=== PATIENT | female | born 1975 | race Caucasian/White ===

== ENCOUNTER → 2017-05-21 | Outpatient (CLI) | payer OTHER ==
--- NOTE | 2017-05-21 11:26 | US ---
EXAMINATION TYPE: US OB <= 14 wk fetus DATE OF EXAM: 05/21/2017 COMPARISON: NONE CLINICAL HISTORY: 41-year-old female O09.521 Elderly multigravida currently....... Evaluate dates EXAM PERFORMED: Transabdominal (TA) FINDINGS: Date of LMP: 03/24/2017, A3 Beta HcG (if available): Not available at this time EXAM MEASUREMENTS: GESTATIONAL AGE / DATING Dates by LMP: (8 weeks/2 days) EDC: 12/29/2017 Dates by Current Scan: (7 weeks/2 days) EDC: 01/05/2018 MATERNAL ANATOMY Uterus: 12.5 x 8.6 x 7.0 cm. Suggestion of a 2.2 cm fundal sided perigestational bleed. Right Ovary: 3.9 x 2.4 x 2.5 with a 2.3 cm cystic lesion with internal septation. Left Ovary: 4.8 x 2.3 x 1.8 cm with a probable functional cyst measuring 3.3 cm. Post CDS / Adnexa: no free fluid Presence of free fluid: no GESTATION / SURVEY CRL: 1.1 cm (7 weeks/2 days) MSD: seen, not measured Yolk Sac (normal less than 6mm): 2.9 Heart Rate: 153 bpm Rhythm: Normal IUP: Viable IUP SURFACING TECHNICIAN NOTES: Live single IUP measuring 7 weeks 2 days. IMPRESSION: 1. Single live anterior with estimated gestational age of 8 weeks 2 days by LMP. Current ul trasound biometry is 1 week smaller (7 weeks 2 days). 2. Suggestion of a small fundal sided perigestational bleed. 3. A lesion within each ovary, probable 3.3 cm corpus luteum on the left and nonspecific, mildly sept ated cyst measuring 2.3 cm in the right ovary. A 6-8 week follow-up can be considered to reassess. Th at exam could also assess for appropriate interval growth. 4. Otherwise, complete survey recommended at 18 - 20 weeks.
== END | disposition home or self-care (01) ==
LOC: RADUSWWP 08:53
PROVIDERS: ATTEND Obstetrics & Gynecology
DX: O09.521 Supervision of elderly multigravida, first trimester (principal); O34.81 Maternal care for other abnormalities of pelvic organs, first trimester; N83.202 Unspecified ovarian cyst, left side; N83.201 Unspecified ovarian cyst, right side; Z3A.01 Less than 8 weeks gestation of pregnancy
CPT/HCPCS: 76801

== ENCOUNTER 2017-06-09 08:06 | Emergency (ER) | payer OTHER ==
--- NOTE | 2017-06-09 08:29 | ED ---
Female Urogenital HPI - General Stated complaint: 10 weeks & poss misscarriage Time Seen by Provider: 06/09/17 08:16 Source: patient, RN notes reviewed Mode of arrival: ambulatory Limitations: no limitations - History of Present Illness Initial comments: 41-year-old female presents emergency Department chief complaint of spotting in . Patient is A4 currently 10 weeks . Patient states her [employer] is Dr. Ruiz. Patient states she started having some spotting this morning which was concerning. She does admit that she's having some lower abdominal cramping feels like menstrual cramps. Patient denies any dysuria or hematuria. Denies any nausea vomiting diarrhea constipation. No fevers or chills. Patient states she does not know what blood type she has though she has never received a RhoGAM shot. Patient denies any back pain denies any other associated symptoms. - Related Data Home Medications Medication Instructions Recorded Confirmed Metoclopramide [Reglan] 10 mg PO DAILY PRN 06/09/17 06/09/17 Pedi Multivit No.25/Folic Acid 300 mcg PO DAILY 06/09/17 06/09/17 [Flintstones Multivit Chew Tab] Previous Rx's Medication Instructions Recorded Cephalexin [Keflex] 500 mg PO Q8HR #21 cap 06/09/17 Allergies Allergy/AdvReac Type Severity Reaction Status Date / Time No Known Allergies Allergy Verified 06/09/17 09:22 Review of Systems ROS Statement: Those systems with pertinent positive or pertinent negative responses have been documented in the HPI. ROS Other: All systems not noted in ROS Statement are negative. Past Medical History Past Medical History: No Reported History Additional Past Medical History / Comment(s): Polycystic ovarian disease History of Any Multi-Drug Resistant Organisms: None Reported Additional Past Surgical History / Comment(s): D&C 3 Past Anesthesia/Blood Transfusion Reactions: No Reported Reaction Past Psychological History: Anxiety, Depression Smoking Status: Never smoker Past Alcohol Use History: None Reported Past Drug Use History: None Reported - Past Family History Mother Family Medical History: No Reported History General Exam Limitations: no limitations General appearance: alert, in no apparent distress Respiratory exam: Present: normal lung sounds bilaterally. Absent: respiratory distress, wheezes, rales, rhonchi, stridor Cardiovascular Exam: Present: regular rate, normal rhythm, normal heart sounds. Absent: systolic murmur, diastolic murmur, rubs, gallop, clicks GI/Abdominal exam: Present: soft, normal bowel sounds. Absent: distended, tenderness, guarding, rebound, rigid Back exam: Absent: CVA tenderness (R), CVA tenderness (L) Skin exam: Present: warm, dry, intact, normal color. Absent: rash Course Vital Signs 06/09/17 08:15 Temperature 97.7 F Pulse Rate 85 Respiratory 20 Rate Blood Pressure 133/87 O2 Sat by Pulse 97 Oximetry Medical Decision Making - Medical Decision Making 41-year-old female presented to department to complaint of spotting early . Patient has a viable IUP seen on ultrasound consistent with her prior. She does have evidence of subchorionic bleed. Patient does have asymptomatic bacteriuria patient be treated with antibiotics at this time. - Lab Data Result diagrams: 06/09/17 08:05 Lab Results 06/09/17 06/09/17 06/09/17 Range/Units 08:05 08:05 08:05 WBC 9.1 (3.8-10.6) k/uL RBC 4.48 (3.80-5.40) m/uL Hgb 12.9 (11.4-16.0) gm/dL Hct 35.7 (34.0-46.0) % MCV 79.7 L (80.0-100.0) fL MCH 28.7 (25.0-35.0) pg MCHC 36.0 (31.0-37.0) g/dL RDW 15.3 (11.5-15.5) % Plt Count 206 (150-450) k/uL Neutrophils % 67 % Lymphocytes % 23 % Monocytes % 4 % Eosinophils % 5 % Basophils % 1 % Neutrophils # 6.1 (1.3-7.7) k/uL Lymphocytes # 2.1 (1.0-4.8) k/uL Monocytes # 0.4 (0-1.0) k/uL Eosinophils # 0.4 (0-0.7) k/uL Basophils # 0.0 (0-0.2) k/uL HCG, Quant 86882.3 mIU/mL Urine Color Urine Appearance (Clear) Urine pH (5.0-8.0) Ur Specific [place] (1.001-1.035) Urine Protein (Negative) Urine Glucose (UA) (Negative) Urine Ketones (Negative) Urine Blood (Negative) Urine Nitrite (Negative) Urine Bilirubin (Negative) Urine Urobilinogen (<2.0) mg/dL Ur Leukocyte Esterase (Negative) Urine WBC (0-5) /hpf Ur Squamous Epith Cells (0-4) /hpf Urine Bacteria (None) /hpf Blood Type AB Positive Blood Type Recheck No 06/09/17 Range/Units 08:05 WBC (3.8-10.6) k/uL RBC (3.80-5.40) m/uL Hgb (11.4-16.0) gm/dL Hct (34.0-46.0) % MCV (80.0-100.0) fL MCH (25.0-35.0) pg MCHC (31.0-37.0) g/dL RDW (11.5-15.5) % Plt Count (150-450) k/uL Neutrophils % % Lymphocytes % % Monocytes % % Eosinophils % % Basophils % % Neutrophils # (1.3-7.7) k/uL Lymphocytes # (1.0-4.8) k/uL Monocytes # (0-1.0) k/uL Eosinophils # (0-0.7) k/uL Basophils # (0-0.2) k/uL HCG, Quant mIU/mL Urine Color Yellow Urine Appearance Cloudy H (Clear) Urine pH 7.5 (5.0-8.0) Ur Specific [place] 1.011 (1.001-1.035) Urine Protein Negative (Negative) Urine Glucose (UA) Negative (Negative) Urine Ketones Negative (Negative) Urine Blood Negative (Negative) Urine Nitrite Negative (Negative) Urine Bilirubin Negative (Negative) Urine Urobilinogen <2.0 (<2.0) mg/dL Ur Leukocyte Esterase Negative (Negative) Urine WBC 2 (0-5) /hpf Ur Squamous Epith Cells 8 H (0-4) /hpf Urine Bacteria Moderate H (None) /hpf Blood Type Blood Type Recheck Disposition Clinical Impression: Threatened miscarriage in early , Asymptomatic bacteriuria during Disposition: HOME SELF-CARE Condition: Stable Instructions: Urinary Tract Infection in (ED) Additional Instructions: Please return to the Emergency Department if symptoms worsen or any other concerns. Prescriptions: Cephalexin [Keflex] 500 mg PO Q8HR #21 cap Referrals: McPhilimy,Alberto, DO [Primary Care Provider] - 1-2 days Time of Disposition: 09:53
[2017-06-09 08:38] LABS: Basophils % (A) 1 %; Eosinophils # (A) 0.4 k/uL (0-0.7); Eosinophils % (A) 5 %; HCT 35.7 % (34.0-46.0); HGB 12.9 gm/dL (11.4-16.0); Lymphocytes # (A) 2.1 k/uL (1.0-4.8); Lymphocytes % (A) 23 %; MCH 28.7 pg (25.0-35.0); MCV 79.7 fL (80.0-100.0); Mean Platelet Volume 7.8; Monocytes # (A) 0.4 k/uL (0-1.0); Monocytes % (A) 4 %; Neutrophils # (A) 6.1 k/uL (1.3-7.7); Neutrophils % (A) 67 %; Platelet Count 206 k/uL (150-450); RBC 4.48 m/uL (3.80-5.40); RDW 15.3 % (11.5-15.5); WBC 9.1 k/uL (3.8-10.6)
[2017-06-09 09:03] LABS: Appearance,Urine Cloudy (Clear); Bacteria,Urine Moderate /hpf; Bilirubin,Urine Negative (Negative); Blood,Urine Negative (Negative); Color,Urine Yellow; Glucose,Urine (UA) Negative (Negative); Ketones,Urine Negative (Negative); Leukocyte Esterase,Urine Negative (Negative); Nitrite,Urine Negative (Negative); PH, Urine 7.5 (5.0-8.0); Protein,Urine Negative (Negative); Specific Gravity,Urine 1.011 (1.001-1.035); Squamous Epithelial Cell,Urine 8 /hpf (0-4); Urobilinogen,Urine <2.0 mg/dL (<2.0); WBC,Urine 2 /hpf (0-5)
--- NOTE | 2017-06-09 09:42 | US ---
EXAMINATION TYPE: US OB <= 14 wk fetus DATE OF EXAM: 06/09/2017 COMPARISON: NONE CLINICAL HISTORY: brown discharge with menstrual like cramping. Pt has history of 4 miscarriages and PCOS. Previous D&C;s.. EXAM PERFORMED: Transabdominal (TA) EXAM MEASUREMENTS: GESTATIONAL AGE / DATING Physician Established: (10 weeks/0 days) EDC: 01/05/18 Dates by LMP: (11 weeks/0 days) EDC: 12/29/17 Dates by First Scan: (10 weeks/0 days) EDC: 01/05/18 Dates by Current Scan for: (10 weeks/1 days) EDC: 01/04/18 MATERNAL ANATOMY Uterus: 15.1 x 7.6 x 10.0 cm ; appears wnl Right Ovary: 4.5 x 3.1 x 2.4 cm; cystic area noted measuring 1.6 x 1.9 x 1.9 cm Left Ovary: 5.2 x 3.2 x 3.2 cm; cystic area noted measuring 2.9 x 3.1 x 2.7 cm Post CDS / Adnexa: no Presence of free fluid: no Presence of corpus luteal cyst: not seen Presence of subchorionic bleed: ?superior to gest sac complex hypoechoic area measuring 2.9 x 1.6 x 3 .3 cm GESTATION / SURVEY CRL: 3.3 cm (10 weeks/1 days) Yolk Sac (normal less than 6mm): 4 mm Heart Rate: 172 bpm Rhythm: Normal IUP: Viable IUP Date of LMP: unknown Beta HcG (if available): N/A yet IMPRESSION: BILATERAL INTRAUTERINE GESTATION WITH A GESTATIONAL AGE OF 10 WEEKS 1 DAY +/- 7 DAYS. ESTIMATED DATE OF CONFINEMENT BASED ON THIS EXAMINATION IS 01/04/2018. PLEASE NOTE THE PRESENCE OF A SMALL SUBCHORIONIC BLEED.
[2017-06-09 10:06] VITALS: BP 126/72; PULSE 80; RESP 18; TEMP 97.6
== END 2017-06-09 10:05 | disposition home or self-care (01) ==
LOC: EC 08:06
DX: O20.0 Threatened abortion (principal); O99.89 Other specified diseases and conditions complicating pregnancy, childbirth and the puerperium; R82.71 Bacteriuria; Z3A.10 10 weeks gestation of pregnancy; Z79.899 Other long term (current) drug therapy
CPT/HCPCS: 36415; 76801; 81001; 84702; 85025; 86900; 86901; 87086; 99284

== ENCOUNTER → 2017-11-07 | Outpatient (CLI) | payer OTHER ==
--- NOTE | 2017-11-07 13:08 | US ---
EXAMINATION TYPE: US OB >= 14 wk fetus DATE OF EXAM: 11/07/2017 COMPARISON: None CLINICAL HISTORY: O09.523 Supervision of elderly multigravida third; growth; TECHNIQUE: Transabdominal (TA) GESTATIONAL AGE / DATING Physician Established: (31 weeks/4 days) EDC: 01/05/2018 Dates by LMP: (32 weeks/4 days) EDC: 12/29/2017 Dates by First Scan: (31 weeks/4 days) EDC: 01/05/2018 Dates by Current Scan: (33 weeks/3 days) EDC: 12/23/2017 Beta HCG (if available): NA SURVEY IUP: Single PLACENTA: Posterior PREVIA: No Previa FLIP: 15.2 cm Normal CERVICAL LENGTH (transabdominal: norm > 3.0cm): 3.4 cm on recheck length BIOMETRY PRESENTATION: Vertex LIE: Longitudinal BPD: 8.2 cm 33 weeks / 1 day HC: 30.8 cm 34 weeks / 2 days AC: 29.5 cm 33 weeks / 3 days FL: 6.5 cm 33 weeks / 5 days ESTIMATED WEIGHT IN GRAMS: 2226.0 grams ESTIMATED WEIGHT IN LBS/OZ: 4 lbs. 15 oz. WEIGHT PERCENTAGE BASED ON ESTABLISHED DATES: 93.6% HC/AC: 1.04 Normal FL/AC: 22.14 Normal HEART RATE: 134 bpm RHYTHM: Normal Single, live IUP, 33 weeks/3 days, EDC: 12/23/2017, HR 134bpm. IMPRESSION: 1. Single intrauterine gestation estimated at 33 weeks 3 days gestation. This would've a calculated T 10 11/04/2017. 2. Cardiac activity measures 134 bpm. 3. Estimated weight is [address] the fetus 94th percentile. 4. Cervical length appears normal on the current exam
== END | disposition home or self-care (01) ==
LOC: RADUSWWP 11:06
PROVIDERS: ATTEND Obstetrics & Gynecology
DX: O09.523 Supervision of elderly multigravida, third trimester (principal); Z3A.33 33 weeks gestation of pregnancy
CPT/HCPCS: 76805

== ENCOUNTER 2017-12-09 22:15 | Outpatient (CLI) | payer OTHER ==
[2017-12-09 23:48] VITALS: PULSE 65; RESP 16; TEMP 98.2
[2017-12-10 00:05] LABS: ALT 13 U/L (9-52); AST 14 U/L (14-36); Blood Urea Nitrogen 3 mg/dL (7-17); LDH 342 U/L (313-618); Uric Acid 4.5 mg/dL (3.7-7.4)
[2017-12-10 00:06] LABS: Appearance,Urine Clear (Clear); Bilirubin,Urine Negative (Negative); Blood,Urine Negative (Negative); Color,Urine Light Yellow; Glucose,Urine (UA) Negative (Negative); Ketones,Urine Negative (Negative); Leukocyte Esterase,Urine Negative (Negative); Nitrite,Urine Negative (Negative); PH, Urine 7.5 (5.0-8.0); Protein,Urine Negative (Negative); Specific Gravity,Urine 1.006 (1.001-1.035); Urobilinogen,Urine <2.0 mg/dL (<2.0)
[2017-12-10 00:30] VITALS: BP 124/68
--- NOTE | 2017-12-18 00:07 | P.MSEPDOC ---
Presenting Problems - Arrival Data Date of Arrival on Unit: 12/09/17 Time of Arrival on Unit: 22:15 Mode of Transport: Wheelchair - Complaint OB-Reason for Admission/Chief Complaint: Acute Nausea/Vomiting, Headache Comment: FARRELL and nausea all day Medical History - Information : 8 Para: 4 Term: 4 : 0 Abortions: Spontaneous or Elective: 3 Number of Living Children: 4 - Gestational Age Gestational Age by ABUNDIO (wks/days): 36 Weeks and 1 Days - History Comment: DOM- care with Dr Ruiz Review of Systems - Review of Systems Constitutional: No problems Breast: No problems ENT: No problems Cardiovascular: No problems Respiratory: No problems Gastrointestinal: No problems Genitourinary: No problems Musculoskeletal: No problems Neurological: No problems Skin: No problems Vital Signs - Temperature Temperature: 98.2 F Temperature Source: Oral - Pulse Right Pulse Rate: 65 Pulse Assessment Method: Pulse Oximetry - Respirations Respiratory Rate: 16 O2 Sat by Pulse Oximetry: 98 - Blood Pressure Right Arm Blood Pressure: 124/68 Blood Pressure Mean: 86 Blood Pressure Source: Automatic Cuff Medical Screen Scoring (Pre) - Cervical Exam Dilation: Exam Deferred Effacement: Exam Deferred - Uterine Contractions Frequency: N/A Duration: N/A Intensity: N/A - Maternal Vital Signs Maternal Blood Pressure: Systolic >139 = 2 Signs of Preeclampsia: Headache = 1, Nausea/Vomiting = 1 Maternal Respirations: N/A - Pain Assessment Pain Location and Character: Head Pain Scale Used: Numeric (1 - 10) Pain Intensity: 3 Pain Management Goal: 3 Pain Description: *Acute, Aching, Sore Pain Duration: 12 Pain Duration Units: Hours Pain Behavior: Vocalization Pain Aggravating Factors: None Pharmacological Interventions: PRN Medication Non-Pharmacological Interventions: Darkened Room, Position/Reposition - Assessment Baseline FHR: 120 Heart Rate - NICHD Category: Category I (Normal) = 0 NST: Reactive - Total Score Total Score (Pre): 4 - Level of Risk Level of Risk: Low (0-5) Physician Notification (Pre) - Physician Notified Physician Notified Date: 12/09/17 Physician Notified Time: 23:08 Physician/Practitioner Notifed:: Dr Webber - Notification Comment Comment: Reported on pts c/o FARRELL and nausea today. Reported on vitals while here , fhts, no cntrx, DOM with scheduled appt tomorrw in office with Dr Ruiz. Reported on no hx per pt, BP has come down since admission to . Orders to obtain PIH labs, call with results. Medical Screen Scoring (Post) - Cervical Exam Dilation: Exam Deferred - Uterine Contractions Frequency: N/A Duration: N/A Intensity: N/A - Maternal Vital Signs Maternal Temperature: N/A Signs of Preeclampsia: N/A Maternal Respirations: N/A - Pain Assessment Pain Intensity: 0 Pain Management Goal: 3 - Assessment Heart Rate: 110 Heart Rate - NICHD Category: Category I (Normal) = 0 NST: Reactive Position: N/A - Total Score Total Score (Post): 0 - Post Treatment Level of Risk Post Treatment Level of Risk: Low (0-5) Physician Notification (Post) - Physician Notified Physician Notified Date: 12/10/17 Physician Notified Time: 00:11 Physician/Practitioner Notified:: Dr Webber - Notification Comment Comment: reported on fhts reactive, lower baseline than initially, no cntrx, vitals WNL, reported on lab results, pt states her FARRELL and nausea are gone. orders to d/c home, keep scheduled appt in am. return with worsening sx Disposition - Disposition OB Disposition: Discharge to home Discharge Date: 12/10/17 Discharge Time: 00:11 I agree with the RN Medical Screening Exam: Yes Risk & Benefit of care provided described in d/c instruction: Yes Diagnosis: HEADACHE
== END 2017-12-10 00:15 | disposition home or self-care (01) ==
LOC: FBPOP 22:15
PROVIDERS: ATTEND Obstetrics & Gynecology
DX: O26.893 Other specified pregnancy related conditions, third trimester (principal); R51 Headache; R11.0 Nausea
CPT/HCPCS: 59025; 81003; 82565; 83615; 84450; 84460; 84520; 84550; 99215

== ENCOUNTER → 2017-12-11 | Outpatient (CLI) | payer OTHER ==
--- NOTE | 2017-12-16 07:28 | US ---
EXAMINATION TYPE: US OB >= 14 wk fetus DATE OF EXAM: 12/11/2017 COMPARISON: None CLINICAL HISTORY: O90.523 SUPERVISION OF ELDERLY MULTIGRAVIDA Supervision of normal TECHNIQUE: Transabdominal (TA) GESTATIONAL AGE / DATING Physician Established: (36 weeks/3 days) EDC: 01/05/18 Dates by LMP: (37 weeks/3 days) EDC: 12/29/17 Dates by First Scan: (36 weeks/3 days) EDC: 01/05/18 Dates by Current Scan: (38 weeks/0 days) EDC: 12/25/17 SURVEY IUP: Single PLACENTA: Fundal/posterior PREVIA: No Previa FLIP: 11.0 cm Normal CERVICAL LENGTH (transabdominal: norm > 3.0cm): 3.6 cm BIOMETRY PRESENTATION: Vertex LIE: Longitudinal BPD: 9.3 cm 38 weeks / 0 days HC: 34.5 cm 39 weeks / 6 days AC: 35.4 cm 39 weeks / 2 days FL: 7.3 cm 37 weeks / 1 days ESTIMATED WEIGHT IN GRAMS: 3584 grams ESTIMATED WEIGHT IN LBS/OZ: 7 lbs. 14 oz. WEIGHT PERCENTAGE BASED ON ESTABLISHED DATES: 96.7% HC/AC: 0.97 Normal FL/AC: 20.45 Normal HEART RATE: 136 bpm RHYTHM: Normal IMPRESSION: Single viable IUP 38wks/0days with ABUNDIO of 12/25/17
== END | disposition home or self-care (01) ==
LOC: RADUSWWP 14:04
PROVIDERS: ATTEND Obstetrics & Gynecology
DX: O09.523 Supervision of elderly multigravida, third trimester (principal); Z3A.38 38 weeks gestation of pregnancy
CPT/HCPCS: 76805

== ENCOUNTER 2017-12-20 21:35 | Inpatient (IN) | payer OTHER ==
[~2017-12-20 21:35] MED LIST: ROPIVACAINE 5MG/ML 20ML VIAL ONE; SODIUM CHLORIDE 0.9% 100 ML BAG ONE; fentaNYL (PF) 50 MCG/ML 5 ML AMP ONE
[2017-12-20] MEDS: LACTATED RINGERS 1,000 ML IV SCH (23:00)
[2017-12-20] MEDS ORDERED: METHYLERGONOVINE 0.2 MG/ML 1 ML AMP IM PRN (23:01)
[2017-12-20] MEDS ORDERED: OXYTOCIN 10 UNIT/ML 1 ML VIAL IM PRN (23:01)
[2017-12-20] MEDS ORDERED: CARBOPROST TROMETHAMINE 250 MCG/ML 1 ML AMP IM PRN (23:01)
[2017-12-20] MEDS ORDERED: TERBUTALINE 1 MG/ML VIAL SQ PRN (23:01)
[2017-12-20] MEDS ORDERED: LIDOCAINE 0.5% (PF) 5 MG/ML (50 ML SDV) SQ PRN (23:01)
[2017-12-20] MEDS ORDERED: OXYTOCIN 20 UNITS/1000 ML NS 1,000 ML IV SCH (23:15)
[2017-12-20 23:26] LABS: Basophils % (A) 0 %; Eosinophils # (A) 0.3 k/uL (0-0.7); Eosinophils % (A) 3 %; HCT 36.8 % (34.0-46.0); HGB 12.8 gm/dL (11.4-16.0); Lymphocytes # (A) 2.6 k/uL (1.0-4.8); Lymphocytes % (A) 27 %; MCH 30.1 pg (25.0-35.0); MCHC 34.8 g/dL (31.0-37.0); MCV 86.5 fL (80.0-100.0); Mean Platelet Volume 8.9; Monocytes # (A) 0.7 k/uL (0-1.0); Monocytes % (A) 7 %; Neutrophils # (A) 5.8 k/uL (1.3-7.7); Neutrophils % (A) 61 %; Platelet Count 182 k/uL (150-450); RBC 4.26 m/uL (3.80-5.40); RDW 14.9 % (11.5-15.5); WBC 9.5 k/uL (3.8-10.6)
[2017-12-20 23:31] VITALS: BMI 34.6
[2017-12-21] MEDS: LACTATED RINGERS 1,000 ML IV SCH (01:02)
--- NOTE | 2017-12-21 03:35 | P.HPOB ---
History of Present Illness H&P Date: 12/21/17 Chief Complaint: Gestational hypertension 42-year-old presented at 37 weeks and 6 days to triage complaining of leaking fluid. Amniosure was negative. However, she had a few elevated blood pressures of 141/85, and 150/80. This is the second time she is coming in with elevated blood pressures. She came in last week at 36 weeks and 1 day with blood pressures up to 160/90 and had to have preeclamptic workup, which was negative. This is enough to diagnose her with gestational hypertension. Since she is over 37 weeks now, by ACOG guidelines she should be delivered. Her cervix is 3 cm dilated, 70% effaced, and -2 station. She is not elpidio. heart tones are 130-135 with moderate variability and reactive. Informed consent was obtained and the patient will be admitted for induction of labor. Review of Systems All systems: negative Constitutional: Denies chills, Denies fever Eyes: denies blurred vision, denies pain Ears, nose, mouth and throat: Denies headache, Denies sore throat Cardiovascular: Denies chest pain, Denies shortness of breath Respiratory: Denies cough Gastrointestinal: Denies abdominal pain, Denies diarrhea, Denies nausea, Denies vomiting Genitourinary: Denies dysuria, Denies hematuria Musculoskeletal: Denies myalgias Integumentary: Denies pruritus, Denies rash Neurological: Denies numbness, Denies weakness Psychiatric: Denies anxiety, Denies depression Endocrine: Denies fatigue, Denies weight change Past Medical History Past Medical History: No Reported History Additional Past Medical History / Comment(s): Polycystic ovarian disease. Obstetric history: Patient has had 4 previous vaginal deliveries. This is her ninth . She's had care with Dr. Ruiz at [facility] as the first trimester. Blood type is AB+, antibodies negative, rubella immune, RPR nonreactive, hepatitis B negative, HIV nonreactive, GBS negative. She did have an MFM consult for advanced maternal age. NSTs were reactive. History of Any Multi-Drug Resistant Organisms: None Reported Additional Past Surgical History / Comment(s): D&C 3 Past Anesthesia/Blood Transfusion Reactions: No Reported Reaction Past Psychological History: Anxiety, Depression Smoking Status: Never smoker Past Alcohol Use History: None Reported Past Drug Use History: None Reported - Past Family History Mother Family Medical History: No Reported History Medications and Allergies Home Medications Medication Instructions Recorded Confirmed Type Pedi Multivit No.25/Folic Acid 300 mcg PO DAILY 06/09/17 12/20/17 History [Flintstones Multivit Chew Tab] Allergies Allergy/AdvReac Type Severity Reaction Status Date / Time No Known Allergies Allergy Verified 12/20/17 21:53 Exam Osteopathic Statement: *. No significant issues noted on an osteopathic structural exam other than those noted in the History and Physical/Consult. Vital Signs Temp Pulse Resp BP Pulse Ox 12/20/17 22:57 97.5 F L 75 16 137/72 97 Intake and Output 12/20/17 12/20/17 12/21/17 14:59 22:59 06:59 Other: Weight 100.244 kg Heart: Regular rate and rhythm Lungs: Clear to auscultation bilaterally Abdomen: Soft, nontender Extremities: Negative Homans sign Results Result Diagrams: 12/20/17 23:00 Assessment and Plan (1) Gestational hypertension Current Visit: Yes Status: Acute Code(s): O13.9 - GESTATIONAL HTN W/O SIGNIFICANT PROTEINURIA, UNSP TRIMESTER SNOMED Code(s): 784216797 Plan: 1. Admit to family place 2. Induction of labor with amniotomy and Pitocin 3. Anticipate normal vaginal delivery
--- NOTE | 2017-12-21 03:37 | P.PROBDLV ---
Vaginal Delivery Note - . Vaginal Delivery Note: 42-year-old presents at 37 weeks and 6 days for induction of labor due to gestational hypertension. Her cervix is 3 cm dilated, 70% effaced, and -2 station. She is elpidio irregularly. heart tones are 130-135 with moderate variability and reactive. Pitocin was started. Amniotomy was performed at 00 25 and clear fluid noted. When she was uncomfortable she did get an epidural worked very well. One her cervix was completely dilated, she pushed and delivered a viable female infant over intact perineum under epidural anesthesia at 3:10 AM. Head delivered OA, anterior shoulder delivered gentle downward guidance followed by posterior shoulder and rest of body. Nose and mouth bulb scissors, cord clamped and cut, placed on mother's abdomen. Apgars 9, 9, weight 7 lbs. 15 oz. Placenta delivered spontaneously, intact with three-vessel cord at 3:12 AM. Vagina, cervix, and perineum were inspected. First-degree midline laceration was repaired with 3-0 Vicryl. Estimated blood loss 150 mL. Mother and baby in stable condition.
[2017-12-21] MEDS ORDERED: BENZOCAINE/MENTHOL SPRAY 1 GM/SPRAY AEROSOL TOPICAL PRN (03:38)
[2017-12-21] MEDS ORDERED: SIMETHICONE 80 MG CHEWABLE PO PRN (03:38)
[2017-12-21] MEDS ORDERED: HYDROCORTISONE 2.5% RECTAL CREAM 30 GM TUBE RECTAL PRN (03:38)
[2017-12-21] MEDS ORDERED: diphenhydrAMINE 50 MG CAP PO PRN (03:38)
[2017-12-21] MEDS ORDERED: ZOLPIDEM 5 MG TAB PO PRN (03:38)
[2017-12-21] MEDS ORDERED: LANOLIN CREAM 5 GM TUBE TOPICAL PRN (03:38)
[2017-12-21] MEDS ORDERED: WITCH HAZEL 1 EACH MED..PAD TOPICAL PRN (03:38)
[2017-12-21] MEDS ORDERED: diphenhydrAMINE 50 MG/ML 1 ML VIAL IVP PRN ×2 (03:38)
[2017-12-21] MEDS ORDERED: diphenhydrAMINE 25 MG CAP PO PRN (03:38)
[2017-12-21] MEDS ORDERED: OXYTOCIN 20 UNITS/1000 ML NS 1,000 ML IV SCH (03:45)
[2017-12-21] MEDS: ACETAMINOPHEN TAB 325 MG TAB PO PRN ×3 (04:15→23:45)
[2017-12-21] MEDS: SENNOSIDES-DOCUSATE SODIUM 1 EACH TAB PO SCH ×2 (08:00→19:31)
[2017-12-21] MEDS: IBUPROFEN 600 MG TAB PO PRN ×2 (09:06→19:30)
[2017-12-21 23:51] VITALS: TEMP 98.5
[2017-12-22] MEDS: IBUPROFEN 600 MG TAB PO PRN (04:15)
[2017-12-22] MEDS: ACETAMINOPHEN TAB 325 MG TAB PO PRN (08:52)
[2017-12-22] MEDS: SENNOSIDES-DOCUSATE SODIUM 1 EACH TAB PO SCH (09:01)
[2017-12-22 09:49] VITALS: BP 129/78; PULSE 70; RESP 18
--- NOTE | 2017-12-22 09:54 | P.DS ---
Providers Date of admission: 12/20/17 22:48 Expected date of discharge: 12/22/17 Attending physician: Debi Daniels Primary care physician: Stated None - Discharge Diagnosis(es) (1) Gestational hypertension Current Visit: Yes Status: Acute (2) Normal vaginal delivery Current Visit: Yes Status: Acute Hospital Course: Pt presented with some high BPs at 37 weeks gestation. She underwent induction of labor and a normal vaginal delivery. Her pp course was uncomplicated. She will be discharged home PPD #1 in stable condition to follow up with me in 6 weeks. Plan - Discharge Summary New Discharge Prescriptions: New Ibuprofen [Motrin] 600 mg PO Q6HR PRN #30 tab PRN Reason: Mild Pain Or Fever >= 100.5 No Action Pedi Multivit No.25/Folic Acid [Flintstones Multivit Chew Tab] 300 mcg PO DAILY Discharge Medication List Pedi Multivit No.25/Folic Acid [Flintstones Multivit Chew Tab] 300 mcg PO DAILY 06/09/17 [History] Ibuprofen [Motrin] 600 mg PO Q6HR PRN #30 tab 12/22/17 [Rx] Follow up Appointment(s)/Referral(s): Debi Daniels DO [Doctor of Osteopathic Medicine] - 6 Weeks Discharge Disposition: HOME SELF-CARE
--- NOTE | 2017-12-23 07:54 | P.MSEPDOC ---
Presenting Problems - Arrival Data Date of Arrival on Unit: 12/21/17 Time of Arrival on Unit: 22:41 Mode of Transport: Ambulatory Medical History - Information : 9 Para: 4 Term: 4 : 0 Abortions: Spontaneous or Elective: 4 Number of Living Children: 4 - Gestational Age Gestational Age by ABUNDIO (wks/days): 37 Weeks and 6 Days Vital Signs - Temperature Temperature: 98.5 F Temperature Source: Oral - Pulse Right Brachial Pulse Rate: 70 Pulse Assessment Method: Automatic Cuff - Respirations Respiratory Rate: 18 Oxygen Delivery Method: Room Air - Blood Pressure Right Arm Blood Pressure: 129/78 Blood Pressure Mean: 95 Blood Pressure Source: Automatic Cuff Physician Notification (Pre) - Notification Comment Comment: Dr. Daniels at bedside Disposition - Disposition Discharge Date: 12/22/17 Discharge Time: 10:59 I agree with the RN Medical Screening Exam: Yes Risk & Benefit of care provided described in d/c instruction: Yes Diagnosis: GESTATIONAL HTN W/O SIGNIFICANT PROTEINURIA, THIRD TRIMESTER
== END 2017-12-22 11:02 | disposition home or self-care (01) | DRG 807 ==
LOC: FBPOP 21:35 → 4FBP 22:48
PROVIDERS: ADMIT Obstetrics & Gynecology; ATTEND Obstetrics & Gynecology
PROC: 0HQ9XZZ Repair Perineum Skin, External Approach (ICD-10-PCS; principal; 2017-12-20)
PROC: 00HU33Z Insertion of Infusion Device into Spinal Canal, Percutaneous Approach (ICD-10-PCS; principal; 2017-12-20)
PROC: 10907ZC Drainage of Amniotic Fluid, Therapeutic from Products of Conception, Via Natural or Artificial Opening (ICD-10-PCS; principal; 2017-12-20)
PROC: 3E033VJ Introduction of Other Hormone into Peripheral Vein, Percutaneous Approach (ICD-10-PCS; principal; 2017-12-20)
PROC: 3E0R3NZ Introduction of Analgesics, Hypnotics, Sedatives into Spinal Canal, Percutaneous Approach (ICD-10-PCS; principal; 2017-12-20)
PROC: 10E0XZZ Delivery of Products of Conception, External Approach (ICD-10-PCS; principal; 2017-12-20)
DX: O13.4 Gestational [pregnancy-induced] hypertension without significant proteinuria, complicating childbirth (principal); Z37.0 Single live birth; E28.2 Polycystic ovarian syndrome; F32.9 Major depressive disorder, single episode, unspecified; F41.9 Anxiety disorder, unspecified; O70.0 First degree perineal laceration during delivery; Z3A.37 37 weeks gestation of pregnancy
CPT/HCPCS: 59025; 85025; 86850; 86900; 86901; 99213

== ENCOUNTER 2017-12-27 19:23 | Inpatient (IN) | payer OTHER ==
[2017-12-27] MEDS ORDERED: KETOROLAC 30 MG/ML 1 ML VIAL IVP STA (19:44)
[2017-12-27] MEDS ORDERED: SODIUM CHLORIDE 0.9% 1,000 ML IV ONE (19:44)
[2017-12-27] MEDS ORDERED: LABETALOL 5 MG/ML VIAL MDV IVP STA ×2 (19:44→20:42)
[2017-12-27 20:05] LABS: Basophils # (A) 0.1 k/uL (0-0.2); Basophils % (A) 1 %; Eosinophils # (A) 0.5 k/uL (0-0.7); Eosinophils % (A) 6 %; HCT 39.4 % (34.0-46.0); Lymphocytes # (A) 2.3 k/uL (1.0-4.8); Lymphocytes % (A) 26 %; MCH 29.6 pg (25.0-35.0); MCV 89.5 fL (80.0-100.0); Mean Platelet Volume 7.6; Monocytes # (A) 0.4 k/uL (0-1.0); Monocytes % (A) 5 %; Neutrophils # (A) 5.3 k/uL (1.3-7.7); Neutrophils % (A) 62 %; Platelet Count 227 k/uL (150-450); RDW 14.6 % (11.5-15.5); WBC 8.6 k/uL (3.8-10.6)
[2017-12-27 20:15] LABS: ALT 23 U/L (9-52); AST 28 U/L (14-36); Albumin 3.4 g/dL (3.5-5.0); Alkaline Phosphatase 84 U/L (38-126); Anion Gap 9 mmol/L; Blood Urea Nitrogen 11 mg/dL (7-17); Calcium 8.6 mg/dL (8.4-10.2); Carbon Dioxide 23 mmol/L (22-30); Chloride 108 mmol/L (98-107); Glucose 88 mg/dL (74-99); LDH 645 U/L (313-618); Potassium 3.9 mmol/L (3.5-5.1); Sodium 140 mmol/L (137-145); Total Bilirubin 0.2 mg/dL (0.2-1.3); Total Protein 6.5 g/dL (6.3-8.2); Uric Acid 6.5 mg/dL (3.7-7.4)
[2017-12-27 20:23] LABS: Appearance,Urine Clear (Clear); Bilirubin,Urine Negative (Negative); Blood,Urine Moderate (Negative); Color,Urine Colorless; Glucose,Urine (UA) Negative (Negative); Ketones,Urine Negative (Negative); Leukocyte Esterase,Urine Trace (Negative); Mucus,Urine Rare /hpf; Nitrite,Urine Negative (Negative); PH, Urine 6.5 (5.0-8.0); Protein,Urine Negative (Negative); RBC,Urine 1 /hpf (0-5); Specific Gravity,Urine 1.004 (1.001-1.035); Squamous Epithelial Cell,Urine 1 /hpf (0-4); Urobilinogen,Urine <2.0 mg/dL (<2.0); WBC,Urine 1 /hpf (0-5)
[2017-12-27] MEDS ORDERED: hydrALAZINE HCL 20 MG/ML 1 ML VIAL IVP STA (20:45)
[2017-12-27] MEDS ORDERED: MAGNESIUM SULFATE GM 6 GM in SODIUM CHLORIDE 0.9% 50 ML IVPB ONE (21:05)
--- NOTE | 2017-12-27 21:25 | ED ---
Recheck HPI <MaxethelJairon Wendy - Last Filed: 12/27/17 21:58> - General Source: patient Mode of arrival: ambulatory Limitations: no limitations <Inna Fitzgerald - Last Filed: 12/28/17 03:06> - General Chief Complaint: Recheck/Abnormal Lab/Rx Stated Complaint: hypertension/headache Time Seen by Provider: 12/27/17 19:36 - History of Present Illness Initial Comments: 42-year-old female patient who is 6 days presents to the emergency department today for evaluation of headache and elevated blood pressure. Patient states that she had an induced vaginal delivery at 37 weeks 6 days for signs of preeclampsia. Patient states that for the last 4 days she has had headaches. Patient states that the headache is generalized with increased intensity at the base of her skull and into her neck. Patient denies any significant swelling to her extremities. She denies any blurred vision, double vision, chest pain, shortness of breath, abdominal pain, nausea, or vomiting. She denies any numbness or tingling to her extremities. Denies any unilateral weakness. Denies any dizziness. If that she is having mild vaginal bleeding. Patient is currently breast-feeding. Not taking anything for blood pressure at this time. Patient denies any recent rash, fever, chills, shortness breath, diarrhea, constipation, back pain, hematuria, dysuria, urinary urgency, urinary frequency, or any other complaints. (Inna Fitzgerald) - Related Data Home Medications Medication Instructions Recorded Confirmed Wvr-Prnr-[id number] Acid 1 cap PO DAILY 12/27/17 12/27/17 [-U Capsule (formulary)] Allergies Allergy/AdvReac Type Severity Reaction Status Date / Time No Known Allergies Allergy Verified 12/27/17 19:53 Review of Systems ROS Other: All systems not noted in ROS Statement are negative. <Jairon Aldridge - Last Filed: 12/27/17 21:58> ROS Other: All systems not noted in ROS Statement are negative. <Inna Fitzgerald - Last Filed: 12/28/17 03:06> ROS Statement: Those systems with pertinent positive or pertinent negative responses have been documented in the HPI. Past Medical History Past Medical History: No Reported History Additional Past Medical History / Comment(s): Polycystic ovarian disease. Obstetric history: Patient has had 4 previous vaginal deliveries. This is her ninth . She's had care with Dr. Ruiz at [facility] as the first trimester. Blood type is AB+, antibodies negative, rubella immune, RPR nonreactive, hepatitis B negative, HIV nonreactive, GBS negative. She did have an MFM consult for advanced maternal age. NSTs were reactive. History of Any Multi-Drug Resistant Organisms: None Reported Additional Past Surgical History / Comment(s): D&C 3 Past Anesthesia/Blood Transfusion Reactions: No Reported Reaction Past Psychological History: Anxiety, Depression Smoking Status: Never smoker Past Alcohol Use History: None Reported Past Drug Use History: None Reported - Past Family History Mother Family Medical History: No Reported History <Inna Fitzgerald - Last Filed: 12/28/17 03:06> General Exam Limitations: no limitations General appearance: alert, in no apparent distress, other (This is a well- developed, well-nourished adult female patient in no acute distress. Vital signs upon presentation are temperature 97.8F, pulse 66, respirations 16, blood pressure 161/98, pulse ox 98% on room air.) Eye exam: Present: normal appearance, PERRL, EOMI. Absent: scleral icterus, conjunctival injection, periorbital swelling ENT exam: Present: normal exam, normal oropharynx, mucous membranes moist Respiratory exam: Present: normal lung sounds bilaterally. Absent: respiratory distress, wheezes, rales, rhonchi, stridor Cardiovascular Exam: Present: regular rate, normal rhythm, normal heart sounds. Absent: systolic murmur, diastolic murmur, rubs, gallop, clicks GI/Abdominal exam: Present: soft, normal bowel sounds. Absent: distended, tenderness, guarding, rebound, rigid Extremities exam: Present: normal inspection, full ROM, normal capillary refill , other (Trace pedal edema). Absent: tenderness, pedal edema, joint swelling, calf tenderness Neurological exam: Present: alert, oriented X3, CN II-XII intact Psychiatric exam: Present: normal affect, normal mood Skin exam: Present: warm, dry, intact, normal color. Absent: rash <Inna Fitzgerald - Last Filed: 12/28/17 03:06> Vital Signs 12/27/17 12/27/17 12/27/17 19:31 20:10 20:41 Temperature 97.8 F Pulse Rate 66 55 L 56 L Pulse Rate [ Left] Respiratory 16 16 16 Rate Blood Pressure 161/98 186/98 190/83 Blood Pressure [Left Arm] O2 Sat by Pulse 98 97 96 Oximetry 12/27/17 12/27/17 12/27/17 21:06 22:18 22:45 Temperature Pulse Rate Pulse Rate [ 64 Left] Respiratory Rate Blood Pressure Blood Pressure 175/91 136/78 138/80 [Left Arm] O2 Sat by Pulse 95 Oximetry 12/27/17 12/27/17 12/27/17 22:50 23:00 23:35 Temperature Pulse Rate 75 Pulse Rate [ 73 Left] Respiratory Rate Blood Pressure Blood Pressure 147/87 149/82 [Left Arm] O2 Sat by Pulse 96 Oximetry 12/27/17 23:47 Temperature Pulse Rate Pulse Rate [ 83 Left] Respiratory Rate Blood Pressure Blood Pressure 149/88 [Left Arm] O2 Sat by Pulse 97 Oximetry Medical Decision Making - Lab Data Result diagrams: 12/27/17 19:50 12/27/17 19:50 <Jairon Aldridge - Last Filed: 12/27/17 21:58> - Lab Data Result diagrams: 12/27/17 19:50 12/27/17 19:50 <Inna Fitzgerald - Last Filed: 12/28/17 03:06> - Medical Decision Making Case discussed with [employer] administration vice president, Dr. Coronel, he is able to evaluate the patient in the emergency department. As she does not have overwhelming signs of preeclampsia, he feels is more related to accelerated hypertension. She is 6 days , and will receive IV magnesium. She is also given labetalol and hydralazine in the emergency department. Patient is otherwise well- appearing, only vital sign abnormality is hypertension. AST and LTR normal, she has normal CBC, no right upper quadrant pain. Headache is relieved with Tylenol alone. Patient will be admitted to internal medicine with [employer] consult. (Jairon Aldridge) - Lab Data Lab Results 12/27/17 12/27/17 12/27/17 Range/Units 19:50 19:50 19:50 WBC 8.6 (3.8-10.6) k/uL RBC 4.40 (3.80-5.40) m/uL Hgb 13.0 (11.4-16.0) gm/dL Hct 39.4 (34.0-46.0) % MCV 89.5 (80.0-100.0) fL MCH 29.6 (25.0-35.0) pg MCHC 33.0 (31.0-37.0) g/dL RDW 14.6 (11.5-15.5) % Plt Count 227 (150-450) k/uL Neutrophils % 62 % Lymphocytes % 26 % Monocytes % 5 % Eosinophils % 6 % Basophils % 1 % Neutrophils # 5.3 (1.3-7.7) k/uL Lymphocytes # 2.3 (1.0-4.8) k/uL Monocytes # 0.4 (0-1.0) k/uL Eosinophils # 0.5 (0-0.7) k/uL Basophils # 0.1 (0-0.2) k/uL Sodium 140 (137-145) mmol/L Potassium 3.9 (3.5-5.1) mmol/L Chloride 108 H (98-107) mmol/L Carbon Dioxide 23 (22-30) mmol/L Anion Gap 9 mmol/L BUN 11 (7-17) mg/dL Creatinine 0.46 L (0.52-1.04) mg/dL Est GFR (CKD-EPI)AfAm >90 (>60 ml/min/1.73 sqM) Est GFR (CKD-EPI)NonAf >90 (>60 ml/min/1.73 sqM) Glucose 88 (74-99) mg/dL Uric Acid 6.5 (3.7-7.4) mg/dL Calcium 8.6 (8.4-10.2) mg/dL Magnesium (1.6-2.3) mg/dL Total Bilirubin 0.2 (0.2-1.3) mg/dL AST 28 (14-36) U/L ALT 23 (9-52) U/L Alkaline Phosphatase 84 (38-126) U/L Lactate Dehydrogenase 645 H (313-618) U/L Total Protein 6.5 (6.3-8.2) g/dL Albumin 3.4 L (3.5-5.0) g/dL Urine Color Colorless Urine Appearance Clear (Clear) Urine pH 6.5 (5.0-8.0) Ur Specific [place] 1.004 (1.001-1.035) Urine Protein Negative (Negative) Urine Glucose (UA) Negative (Negative) Urine Ketones Negative (Negative) Urine Blood Moderate H (Negative) Urine Nitrite Negative (Negative) Urine Bilirubin Negative (Negative) Urine Urobilinogen <2.0 (<2.0) mg/dL Ur Leukocyte Esterase Trace H (Negative) Urine RBC 1 (0-5) /hpf Urine WBC 1 (0-5) /hpf Ur Squamous Epith Cells 1 (0-4) /hpf Urine Mucus Rare H (None) /hpf 12/27/17 Range/Units 19:50 WBC (3.8-10.6) k/uL RBC (3.80-5.40) m/uL Hgb (11.4-16.0) gm/dL Hct (34.0-46.0) % MCV (80.0-100.0) fL MCH (25.0-35.0) pg MCHC (31.0-37.0) g/dL RDW (11.5-15.5) % Plt Count (150-450) k/uL Neutrophils % % Lymphocytes % % Monocytes % % Eosinophils % % Basophils % % Neutrophils # (1.3-7.7) k/uL Lymphocytes # (1.0-4.8) k/uL Monocytes # (0-1.0) k/uL Eosinophils # (0-0.7) k/uL Basophils # (0-0.2) k/uL Sodium (137-145) mmol/L Potassium (3.5-5.1) mmol/L Chloride (98-107) mmol/L Carbon Dioxide (22-30) mmol/L Anion Gap mmol/L BUN (7-17) mg/dL Creatinine (0.52-1.04) mg/dL Est GFR (CKD-EPI)AfAm (>60 ml/min/1.73 sqM) Est GFR (CKD-EPI)NonAf (>60 ml/min/1.73 sqM) Glucose (74-99) mg/dL Uric Acid (3.7-7.4) mg/dL Calcium (8.4-10.2) mg/dL Magnesium 1.8 (1.6-2.3) mg/dL Total Bilirubin (0.2-1.3) mg/dL AST (14-36) U/L ALT (9-52) U/L Alkaline Phosphatase (38-126) U/L Lactate Dehydrogenase (313-618) U/L Total Protein (6.3-8.2) g/dL Albumin (3.5-5.0) g/dL Urine Color Urine Appearance (Clear) Urine pH (5.0-8.0) Ur Specific [place] (1.001-1.035) Urine Protein (Negative) Urine Glucose (UA) (Negative) Urine Ketones (Negative) Urine Blood (Negative) Urine Nitrite (Negative) Urine Bilirubin (Negative) Urine Urobilinogen (<2.0) mg/dL Ur Leukocyte Esterase (Negative) Urine RBC (0-5) /hpf Urine WBC (0-5) /hpf Ur Squamous Epith Cells (0-4) /hpf Urine Mucus (None) /hpf Disposition <Jairon Aldridge - Last Filed: 12/27/17 21:58> Decision to Admit Reason: Admit from EC Decision Date: 12/27/17 Decision Time: 22:17 <Inna Fitzgerald - Last Filed: 12/28/17 03:06> Clinical Impression: Accelerated hypertension Narrative: Rule out preeclampsia (Inna Fitzgerald) Disposition: ADMITTED IP TO THIS [facility] Condition: Serious
--- NOTE | 2017-12-27 22:11 | P.HPOB ---
History of Present Illness H&P Date: 12/27/17 Chief Complaint: Uncontrolled hypertension day 6 Barbara is a very pleasant 42-year-old female who delivered with Dr. Daniels a viable female approximately 6 days ago. Initially she had been admitted and induced due to gestational hypertension. She previously had preeclamptic labs and all those have returned normal. Following the delivery, all of her blood pressures were normal. During her hospitalization following her visit in triage where her blood pressures were elevated, all of her blood pressures that I could see were normal. At the time of her discharge she had a mild headache she reports but normal blood pressures she was therefore discharged home in stable condition. Previous review of labs revealed normal preeclamptic labs again within a week of her induction. She relates that over the last several days she's had persistent headaches and in particular yesterday morning she had what she describes as a bad headache and head discomfort in her posterior occipital region that finally improved after Tylenol. She was worried that she may have a spinal headache but relates that Even laying flat did not do anything for her headache nor did ingestion of caffeine. Today she was brought into the emergency room by her for a headache that was not resolving, she relates that she also took between thousand 1500 mg of Tylenol on several occasions to try and get her headache to improve. In the emergency room tonight there was some concern over the possibility of preeclampsia, which is a logical diagnosis under the circumstances. In reviewing her blood pressures in the emergency room she had several blood pressures in the 190/90 range despite labetalol and hydralazine. A bolus of magnesium sulfate with a continuous drip has been advised as precaution against eclampsia development. I did come in and evaluate the patient myself. she has a headache that seems to be improved and currently she' s smiling and laughing and acting very normal. She relates no epigastric pain, no specific visual changes at this time and certainly no description of scotoma. Her deep tendon reflexes are 2+ on the left and 1+ on the right showing no signs of hyperreflexia. Review of labs reveals a elevated LDH which could be a early marker for preeclampsia, however she also had a baby less than a week ago which also likely would increase her lactate dehydrogenase. AST and ALTs were normal platelets were normal and there was no protein in her urine even with the presence of blood following having a baby a week ago. At this time based on her symptomatology she does not appear to be preeclamptic. I do not have any prior records that she was not our patient and in the office she was a patient of Dr. Ruiz at [facility]. I have no knowledge of whether not she has a history of hypertension, she denies same but has no primary care providers so it is difficult to say if she ever had hypertension previously. We are deferring admission to internal medicine due to such high blood pressures that will potentially require IV maintenance to stabilize, which is out of my scope of practice. Again while I cannot fully rule out a an atypical preeclampsia, other than antihypertensives and magnesium sulfate for seizure prophylaxis there really is nothing else that we would normally offer. Will follow the patient closely with internal medicine. All questions were answered for both she and her . Due to how heart her blood pressures are however, at this time she likely would be of better or safer to be on a telemetry unit. Should her blood pressure stabilized and transferred to labor and delivery for observation following that is certainly possible. Past Medical History Past Medical History: No Reported History Additional Past Medical History / Comment(s): Polycystic ovarian disease. Obstetric history: Patient has had 4 previous vaginal deliveries. This is her ninth . She's had care with Dr. Ruiz at [facility] as the first trimester. Blood type is AB+, antibodies negative, rubella immune, RPR nonreactive, hepatitis B negative, HIV nonreactive, GBS negative. She did have an MFM consult for advanced maternal age. NSTs were reactive. History of Any Multi-Drug Resistant Organisms: None Reported Additional Past Surgical History / Comment(s): D&C 3 Past Anesthesia/Blood Transfusion Reactions: No Reported Reaction Past Psychological History: Anxiety, Depression Smoking Status: Never smoker Past Alcohol Use History: None Reported Past Drug Use History: None Reported - Past Family History Mother Family Medical History: No Reported History Medications and Allergies Home Medications Medication Instructions Recorded Confirmed Type [id number] Acid 1 cap PO DAILY 12/27/17 12/27/17 History [-U Capsule (formulary)] Allergies Allergy/AdvReac Type Severity Reaction Status Date / Time No Known Allergies Allergy Verified 12/27/17 19:53 Exam Osteopathic Statement: *. No significant issues noted on an osteopathic structural exam other than those noted in the History and Physical/Consult. Vital Signs Temp Pulse Resp BP Pulse Ox 12/27/17 20:41 56 L 16 190/83 96 12/27/17 20:10 55 L 16 186/98 97 12/27/17 19:31 97.8 F 66 16 161/98 98 Intake and Output 12/27/17 12/27/17 12/27/17 06:59 14:59 22:59 Other: Weight 91.626 kg Results Result Diagrams: 12/27/17 19:50 12/27/17 19:50 Abnormal Lab Results - Last 24 Hours (Table) 12/27/17 12/27/17 Range/Units 19:50 19:50 Chloride 108 H (98-107) mmol/L Creatinine 0.46 L (0.52-1.04) mg/dL Lactate Dehydrogenase 645 H (313-618) U/L Albumin 3.4 L (3.5-5.0) g/dL Urine Blood Moderate H (Negative) Ur Leukocyte Esterase Trace H (Negative) Urine Mucus Rare H (None) /hpf
[2017-12-27] MEDS ORDERED: hydrALAZINE HCL 20 MG/ML 1 ML VIAL IVP PRN (22:20)
[2017-12-27] MEDS ORDERED: NALOXONE 0.4 MG/ML 1 ML VIAL IV PRN (22:51)
[2017-12-28] MEDS: MAGNESIUM SULFATE-WATER PMX 20 GM in WATER FOR INJECTION 1 500ML.BAG IV SCH ×2 (00:01→08:47)
[2017-12-28 00:28] VITALS: BMI 31.0
[2017-12-28] MEDS: LACTATED RINGERS 1,000 ML IV SCH (00:57)
[2017-12-28] MEDS ORDERED: KETOROLAC 30 MG/ML 1 ML VIAL IVP STA (05:15)
[2017-12-28 06:36] LABS: Basophils % (A) 0 %; Eosinophils # (A) 0.4 k/uL (0-0.7); Eosinophils % (A) 4 %; HCT 39.4 % (34.0-46.0); HGB 13.1 gm/dL (11.4-16.0); Lymphocytes % (A) 21 %; MCH 29.7 pg (25.0-35.0); MCHC 33.3 g/dL (31.0-37.0); MCV 89.1 fL (80.0-100.0); Mean Platelet Volume 7.4; Monocytes # (A) 0.5 k/uL (0-1.0); Monocytes % (A) 5 %; Neutrophils # (A) 6.4 k/uL (1.3-7.7); Neutrophils % (A) 68 %; Platelet Count 228 k/uL (150-450); RBC 4.43 m/uL (3.80-5.40); RDW 14.8 % (11.5-15.5); WBC 9.4 k/uL (3.8-10.6)
[2017-12-28 06:51] LABS: ALT 23 U/L (9-52); AST 24 U/L (14-36); Albumin 3.2 g/dL (3.5-5.0); Alkaline Phosphatase 88 U/L (38-126); Anion Gap 8 mmol/L; Blood Urea Nitrogen 7 mg/dL (7-17); Calcium 7.9 mg/dL (8.4-10.2); Carbon Dioxide 25 mmol/L (22-30); Chloride 108 mmol/L (98-107); Glucose 87 mg/dL (74-99); LDH 615 U/L (313-618); Potassium 4.5 mmol/L (3.5-5.1); Sodium 141 mmol/L (137-145); Total Bilirubin 0.3 mg/dL (0.2-1.3); Total Protein 6.3 g/dL (6.3-8.2); Uric Acid 5.7 mg/dL (3.7-7.4)
[2017-12-28 07:18] LABS: Partial Thromboplastin Time 23.1 sec (22.0-30.0); Prothrombin Time 9.5 sec (9.0-12.0)
[2017-12-28] MEDS: PRENATAL VIT-IRON-FOLIC ACID 1 EACH CAP PO SCH (08:47)
--- NOTE | 2017-12-28 10:07 | P.PN ---
Progress Note - Text Progress Note Date: 12/28/17 When is seen and evaluated by OB this morning, I did speak with she and her again. She is lying in bed comfortably and relates that her headache is completely resolved. Reviewing her labs this morning is TLT are still negative her LDH is decreased as well realistically I have no evidence of preeclampsia especially in the face of no proteinuria and no swelling at all in her extremities or centrally. She does relate that she lost quite a bit of weight that she was 1 L last week so I cannot KIKO from the theoretical standpoint stated she did not have labs that would've equates preeclampsia couple of days ago and have improved but at this time I've no evidence of preeclampsia. Would plan to continue the mag sulfate for 24 hours as a precaution as that is normally with maybe sulfate. Her mag level this morning is 3.5 mg/dL which is slightly below the therapeutic range but as she is completely symptomatically I don't know that I would this time likely she would not have to have it redrawn but consideration could be done for redraw late this afternoon. Your medical management for her blood pressure she is breast- feeding so there is some concern over medications are safe for breast-feeding. However with her blood pressures improving slightly if we can find a medication that will control her blood pressures likely she can go home potentially tomorrow if medicine feels she is stable for discharge. However obviously serial blood pressures and any other changes need to be monitored prior to her discharge.
[2017-12-28] MEDS ORDERED: hydrALAZINE HCL 10 MG TAB PO PRN (16:56)
--- NOTE | 2017-12-28 17:05 | P.HPIM ---
History of Present Illness H&P Date: 12/28/17 Chief Complaint: Headache Mrs. Ohara is a 42-year-old female with no significant past medical history coming into the hospital with a chief complaint of headaches and elevated blood pressure. Patient states that this is her fifth child and she had a normal vaginal delivery 6 days back. Patient states that she started to have headache that is generalized in nature that was radiating to the skull and her neck and so she came in for further evaluation. Patient denies having any blurry vision and double vision. No chest pain or difficulty in breathing. No cough or sputum production. No abdominal pain nausea vomiting or diarrhea. She denies having any tingling or numbness in her extremities or weakness of 4 limbs. Patient is 6 days so has mild vaginal bleeding and is currently breast-feeding. Previously the patient was admitted for gestational hypertension and hadn't induced labor at 37 weeks of . Following her delivery all the patient' s labs returned to normal and blood pressures were normal. But at the time of admission here patient's blood pressure was high and so she was started on a magnesium drip and admitted to us with NURSE EXAMINER consult. Patient has been on IV magnesium drip and her blood pressure has been between 130s to 160s by 80-90. Review of Systems REVIEW OF SYSTEMS: PSYCH: No anxiety or depression NEURO:No c/o weakness of the extremties, No facial droop, No speech abnormalities. VASCULAR: no edema HEMATOLOGIC: No history of easy bleeding and bruising . No recent infections . RESPIRATORY: No cough, No SOB, No chest discomfort. IMMUNE: No infections INTEGUMENT: no rashes OPHTHALMOLOGIC: No blurry vision and no eye discharge : No dysuria or hematuria SKIVER BOX TOE: Mild bleeding CARDIAC: No chest pain , shortness of breath , paroxysmal nocturnal dyspnea MUSCULOSKELETAL : No Aches or pains in the joints or muscles. GI: No abdominal pain, Nausea or vomiting. No constipation or diarrhea. Past Medical History Past Medical History: No Reported History Additional Past Medical History / Comment(s): Polycystic ovarian disease. Obstetric history: Patient has had 4 previous vaginal deliveries. This is her ninth . She's had care with Dr. Ruiz at [facility] as the first trimester. Blood type is AB+, antibodies negative, rubella immune, RPR nonreactive, hepatitis B negative, HIV nonreactive, GBS negative. She did have an MFM consult for advanced maternal age. NSTs were reactive. History of Any Multi-Drug Resistant Organisms: None Reported Additional Past Surgical History / Comment(s): D&C 3 Past Anesthesia/Blood Transfusion Reactions: No Reported Reaction Past Psychological History: Anxiety, Depression Smoking Status: Never smoker Past Alcohol Use History: None Reported Past Drug Use History: None Reported - Past Family History Mother Family Medical History: No Reported History Medications and Allergies Home Medications Medication Instructions Recorded Confirmed Type Rlr-Bzhc-Vgbpa Acid 1 cap PO DAILY 12/27/17 12/27/17 History [-U Capsule (formulary)] Allergies Allergy/AdvReac Type Severity Reaction Status Date / Time No Known Allergies Allergy Verified 12/27/17 19:53 Physical Exam Vitals: Vital Signs Temp Pulse Pulse Pulse Resp BP BP 12/28/17 11:31 98.2 F 75 18 139/78 12/28/17 08:00 60 18 145/87 12/28/17 03:00 97.6 F 70 16 161/85 12/28/17 00:22 97.8 F 80 16 151/92 12/28/17 00:10 97.8 F 80 18 151/92 12/27/17 23:47 83 149/88 12/27/17 23:35 149/82 12/27/17 23:00 73 147/87 12/27/17 22:50 75 12/27/17 22:45 138/80 12/27/17 22:18 136/78 12/27/17 21:06 64 175/91 12/27/17 20:41 56 L 16 190/83 12/27/17 20:10 55 L 16 186/98 12/27/17 19:31 97.8 F 66 16 161/98 Pulse Ox 12/28/17 11:31 94 L 12/28/17 08:00 98 12/28/17 03:00 96 12/28/17 00:22 98 12/28/17 00:10 98 12/27/17 23:47 97 12/27/17 23:35 96 12/27/17 23:00 12/27/17 22:50 12/27/17 22:45 12/27/17 22:18 95 12/27/17 21:06 12/27/17 20:41 96 12/27/17 20:10 97 12/27/17 19:31 98 Intake and Output 12/28/17 12/28/17 12/28/17 06:59 14:59 22:59 Intake Total 45 676.667 Balance 45 676.667 Intake: Intake, IV Titration 45 196.667 Amount Magnesium Sulfate-Water 45 196.667 Pmx 20 gm In Water For Injection 1 500ml.bag @ 1 GM/HR 25 mls/hr IV .Q20H [facility]US Rx#:[id number] Oral 480 Other: # Voids 1 Weight 90 kg GENERAL EXAM GEN. APPEARANCE: alert, in no apparent distress HEAD EXAM: atraumatic, normocephalic, normal inspection EYE EXAM: normal appearance, PERRL, EOMI. Absent: scleral icterus, conjunctival injection, periorbital swelling ENT EXAM: normal exam, mucous membranes moist NECK EXAM: normal inspection. Absent: tenderness, meningismus, full ROM, lymphadenopathy RESPIRATORY EXAM: normal lung sounds bilaterally. Absent: respiratory distress , wheezes, rales, rhonchi, stridor CARDIOVASCULAR EXAM: regular rate, normal rhythm, normal heart sounds. Absent : systolic murmur, diastolic murmur, rubs, gallop, clicks GI/ABDOMINAL EXAM: soft, normal bowel sounds. Absent: distended, tenderness, guarding, rebound, rigid EXTREMITIES EXAM: normal inspection, full ROM, normal capillary refill. Absent : tenderness, pedal edema, joint swelling, calf tenderness NEUROLOGICAL EXAM: alert, oriented X3, no focal deficits PSYCHIATRIC EXAM: normal affect, normal mood SKIN EXAM: warm, dry, intact, normal color. Absent: rash Results CBC & Chem 7: 12/28/17 06:19 12/28/17 06:19 Labs: Abnormal Lab Results - Last 24 Hours (Table) 12/27/17 12/27/17 12/28/17 Range/Units 19:50 19:50 06:19 Chloride 108 H 108 H (98-107) mmol/L Creatinine 0.46 L 0.48 L (0.52-1.04) mg/dL Calcium 7.9 L (8.4-10.2) mg/dL Magnesium (1.6-2.3) mg/dL Lactate Dehydrogenase 645 H (313-618) U/L Albumin 3.4 L 3.2 L (3.5-5.0) g/dL Urine Blood Moderate H (Negative) Ur Leukocyte Esterase Trace H (Negative) Urine Mucus Rare H (None) /hpf 12/28/17 Range/Units 06:19 Chloride (98-107) mmol/L Creatinine (0.52-1.04) mg/dL Calcium (8.4-10.2) mg/dL Magnesium 3.5 H (1.6-2.3) mg/dL Lactate Dehydrogenase (313-618) U/L Albumin (3.5-5.0) g/dL Urine Blood (Negative) Ur Leukocyte Esterase (Negative) Urine Mucus (None) /hpf Thrombosis Risk Factor Assmnt - Choose All That Apply Each Factor Represents 1 point: Obesity (BMI >25), or Thrombosis Risk Factor Assessment Total Risk Factor Score: 2 Thrombosis Risk Factor Assessment Level: Low Risk Assessment and Plan Assessment: ASSESSMENT Accelerated hypertension - Questionable previous history of preeclampsia 6 days Plan: Patient's magnesium drip has been discontinued. Patient's blood pressure has been trending down, she has only been getting hydralazine on when necessary basis. On reviewing beta blockers and calcium channel blockers are safe blood pressure medications in a 6-day-old patient who is breast feeding. Her heart rate is between 60-80, so will start the patient on 30 mg of Procardia XL tonight, along with hydralazine 10 mg by mouth for blood pressures more than 150 systolic on when necessary basis. The treatment plan was discussed with the patient and her at the bedside in detail. Patient is being transferred to a private room to help her have some breast feeding. Further recommendations to follow depending on the progress of the patient.
[2017-12-28] MEDS: NIFEdipine XL 30 MG TAB.ER.24 PO SCH (17:26)
[2017-12-28] MEDS ORDERED: BUTALB/APAP/CAFF 50-325-40MG TAB PO PRN (20:37)
[2017-12-29] MEDS: ACETAMINOPHEN TAB 325 MG TAB PO PRN ×4 (00:39→17:43)
[2017-12-29] MEDS: LACTATED RINGERS 1,000 ML IV SCH (01:04)
[2017-12-29 06:26] LABS: Basophils % (A) 1 %; Eosinophils # (A) 0.5 k/uL (0-0.7); Eosinophils % (A) 6 %; HCT 40.6 % (34.0-46.0); HGB 13.3 gm/dL (11.4-16.0); Lymphocytes # (A) 2.3 k/uL (1.0-4.8); Lymphocytes % (A) 28 %; MCH 29.5 pg (25.0-35.0); MCHC 32.8 g/dL (31.0-37.0); Mean Platelet Volume 7.3; Monocytes # (A) 0.4 k/uL (0-1.0); Monocytes % (A) 5 %; Neutrophils # (A) 4.8 k/uL (1.3-7.7); Neutrophils % (A) 59 %; Platelet Count 245 k/uL (150-450); RBC 4.51 m/uL (3.80-5.40); RDW 14.7 % (11.5-15.5); WBC 8.1 k/uL (3.8-10.6)
[2017-12-29 06:35] LABS: ALT 28 U/L (9-52); AST 22 U/L (14-36); Albumin 3.2 g/dL (3.5-5.0); Alkaline Phosphatase 85 U/L (38-126); Anion Gap 7 mmol/L; Blood Urea Nitrogen 8 mg/dL (7-17); Calcium 8.2 mg/dL (8.4-10.2); Carbon Dioxide 23 mmol/L (22-30); Chloride 108 mmol/L (98-107); Glucose 82 mg/dL (74-99); Potassium 4.1 mmol/L (3.5-5.1); Sodium 138 mmol/L (137-145); Total Bilirubin 0.4 mg/dL (0.2-1.3); Total Protein 6.2 g/dL (6.3-8.2)
[2017-12-29] MEDS: NIFEdipine XL 30 MG TAB.ER.24 PO SCH (08:38)
[2017-12-29] MEDS: PRENATAL VIT-IRON-FOLIC ACID 1 EACH CAP PO SCH (08:38)
--- NOTE | 2017-12-29 16:03 | P.PN ---
Subjective Progress Note Date: 12/29/17 Principal diagnosis: Accelerated hypertension Mrs. Ohara is a 42-year-old female with no significant past medical history who is 6 days admitted to the hospital for the chief complaint of headaches and elevated blood pressure. Patient was initially started on a magnesium drip and started on IV hydralazine for her blood pressure and admitted to the floor. Patient's blood pressure did trend down and had magnesium drip has been discontinued and she was started on 30 mg of Procardia XL yesterday. Patient' s blood pressure did show improvement but the telemetry strips show that the patient's heart rate has been going up to 120s and 130s even with slight exertion. Patient states that she still has headaches that respond to Tylenol. Patient denies having any chest pain or difficulty in breathing. Patient denies having any palpitations. On review of systems-patient denies having any fevers chills or rhinitis. No abdominal pain nausea vomiting or diarrhea. No dysuria or hematuria. Objective - Vital Signs Vital signs: Vital Signs Temp 98.4 F 12/29/17 08:05 Pulse 94 12/29/17 08:05 Resp 18 12/29/17 08:05 BP 142/85 12/29/17 08:05 Pulse Ox 97 12/29/17 08:05 Intake & Output 12/28/17 12/29/17 12/29/17 18:59 06:59 18:59 Intake Total 676.667 500 Output Total 500 Balance 676.667 0 Weight 88.082 kg Intake: Intake, IV Titration 196.667 Amount Magnesium Sulfate-Water 196.667 Pmx 20 gm In Water For Injection 1 500ml.bag @ 1 GM/HR 25 mls/hr IV .Q20H [facility] Rx#:[id number] Oral 480 500 Output: Urine 500 Other: Voiding Method Toilet # Voids 1 - Exam GEN. APPEARANCE: alert, in no apparent distress HEAD EXAM: atraumatic, normocephalic, normal inspection EYE EXAM: no Pallor or icterus NECK EXAM: normal inspection. RESPIRATORY EXAM: normal lung sounds bilaterally. Absent: respiratory distress , wheezes, rales, rhonchi, stridor CARDIOVASCULAR EXAM: regular rate, normal rhythm, normal heart sounds. Absent : systolic murmur, diastolic murmur, rubs, gallop, clicks GI/ABDOMINAL EXAM: soft, normal bowel sounds. Absent: distended, tenderness, guarding, rebound, rigid EXTREMITIES EXAM: No edema. Pedal pulses felt. NEUROLOGICAL EXAM: alert, oriented X3, no focal deficits PSYCHIATRIC EXAM: normal affect, normal mood SKIN EXAM: warm, dry, intact, normal color. Absent: rash - Labs CBC & Chem 7: 12/29/17 06:01 12/29/17 06:01 Labs: Abnormal Lab Results - Last 24 Hours (Table) 12/29/17 Range/Units 06:01 Chloride 108 H (98-107) mmol/L Creatinine 0.48 L (0.52-1.04) mg/dL Calcium 8.2 L (8.4-10.2) mg/dL Total Protein 6.2 L (6.3-8.2) g/dL Albumin 3.2 L (3.5-5.0) g/dL Assessment and Plan Assessment: ASSESSMENT Accelerated hypertension - Questionable previous history of preeclampsia 6 days Plan: Patient's magnesium drip has been discontinued. On reviewing beta blockers and calcium channel blockers are safe blood pressure medications in a 6 -day-old patient who is breast feeding. She and has been started on 30 mg of Procardia XL yesterday and her blood pressure is under better control today. But as the telemetry strips show tachycardia cardiology has been consulted. We will get a TSH and echocardiogram. The treatment plan was discussed with the patient and her at the bedside in detail. Further recommendations to follow depending on the progress of the patient.
[2017-12-30] MEDS: ACETAMINOPHEN TAB 325 MG TAB PO PRN ×2 (00:17→08:49)
[2017-12-30] MEDS: NIFEdipine XL 30 MG TAB.ER.24 PO SCH (08:49)
[2017-12-30] MEDS: PRENATAL VIT-IRON-FOLIC ACID 1 EACH CAP PO SCH (08:49)
[2017-12-30 10:53] LABS: Basophils # (A) 0.1 k/uL (0-0.2); Basophils % (A) 1 %; Eosinophils # (A) 0.4 k/uL (0-0.7); Eosinophils % (A) 5 %; HCT 40.3 % (34.0-46.0); HGB 13.4 gm/dL (11.4-16.0); Lymphocytes # (A) 1.9 k/uL (1.0-4.8); Lymphocytes % (A) 23 %; MCH 30.1 pg (25.0-35.0); MCHC 33.2 g/dL (31.0-37.0); MCV 90.7 fL (80.0-100.0); Mean Platelet Volume 7.7; Monocytes # (A) 0.4 k/uL (0-1.0); Monocytes % (A) 4 %; Neutrophils # (A) 5.6 k/uL (1.3-7.7); Neutrophils % (A) 66 %; Platelet Count 241 k/uL (150-450); RBC 4.45 m/uL (3.80-5.40); RDW 14.5 % (11.5-15.5); WBC 8.4 k/uL (3.8-10.6)
[2017-12-30 11:02] LABS: Anion Gap 10 mmol/L; Blood Urea Nitrogen 8 mg/dL (7-17); Calcium 8.9 mg/dL (8.4-10.2); Carbon Dioxide 23 mmol/L (22-30); Chloride 106 mmol/L (98-107); Glucose 132 mg/dL (74-99); Potassium 4.1 mmol/L (3.5-5.1); Sodium 139 mmol/L (137-145)
--- NOTE | 2017-12-30 13:18 | P.CRDCN ---
<Bhavik Walker - Last Filed: 12/30/17 13:18> History of Present Illness History of present illness: 42-year-old female 2-3 days, elevated blood pressures, symptoms of severe headache no shortness of breath no chest pain no dizziness lightheadedness. Blood pressure noted to be quite elevated. Treated with magnesium Isuprel placed started on Procardia XL 30 mrem daily. Blood pressure is well-controlled looks very comfortable nursing her baby at this time 2-D echo report pending. No abdominal bruits noted Patient may be discharged home on Procardia XL 30 daily and I'll see her in 2-4 weeks. Please see full dictation when asked practitioner Past Medical History Past Medical History: No Reported History Additional Past Medical History / Comment(s): Polycystic ovarian disease. Obstetric history: Patient has had 4 previous vaginal deliveries. This is her ninth . She's had care with Dr. Ruiz at [facility] as the first trimester. Blood type is AB+, antibodies negative, rubella immune, RPR nonreactive, hepatitis B negative, HIV nonreactive, GBS negative. She did have an MFM consult for advanced maternal age. NSTs were reactive. History of Any Multi-Drug Resistant Organisms: None Reported Additional Past Surgical History / Comment(s): D&C 3 Past Anesthesia/Blood Transfusion Reactions: No Reported Reaction Past Psychological History: Anxiety, Depression Smoking Status: Never smoker Past Alcohol Use History: None Reported Past Drug Use History: None Reported - Past Family History Mother Family Medical History: No Reported History Medications and Allergies Home Medications Medication Instructions Recorded Confirmed Type Eda-Vrjz-Rsqlq Acid 1 cap PO DAILY 12/27/17 12/27/17 History [-U Capsule (formulary)] NIFEdipine XL [Procardia XL] 30 mg PO DAILY #30 tab.er.24 12/30/17 Rx Allergies Allergy/AdvReac Type Severity Reaction Status Date / Time No Known Allergies Allergy Verified 12/27/17 19:53 Physical Exam Vitals: Vital Signs Temp Pulse Resp BP BP Pulse Ox 12/30/17 08:40 97.8 F 81 12 132/76 95 12/30/17 00:56 97.8 F 78 14 118/68 12/29/17 21:22 97.9 F 87 16 140/85 96 12/29/17 16:00 81 19 12/29/17 15:20 98.3 F 81 125/83 95 Intake and Output 12/29/17 12/30/17 12/30/17 22:59 06:59 14:59 Other: Voiding Method Toilet # Voids 2 3 Results 12/30/17 09:14 12/30/17 09:14 CBC 12/30/17 Range/Units 09:14 WBC 8.4 (3.8-10.6) k/uL RBC 4.45 (3.80-5.40) m/uL Hgb 13.4 (11.4-16.0) gm/dL Hct 40.3 (34.0-46.0) % Plt Count 241 (150-450) k/uL Comprehensive Metabolic Panel 12/30/17 Range/Units 09:14 Sodium 139 (137-145) mmol/L Potassium 4.1 (3.5-5.1) mmol/L Chloride 106 (98-107) mmol/L Carbon Dioxide 23 (22-30) mmol/L BUN 8 (7-17) mg/dL Creatinine 0.60 (0.52-1.04) mg/dL Glucose 132 H (74-99) mg/dL Calcium 8.9 (8.4-10.2) mg/dL Current Medications Generic Name Dose Route Start Last Admin Trade Name Arturoq PRN Reason Stop Dose Admin Acetaminophen 650 mg 12/28/17 20:35 12/30/17 08:49 Tylenol Tab PO 650 mg Q6HR PRN Administration Fever and/ or Pain Acetaminophen/Butalbital/Caffeine 1 each 12/28/17 20:37 12/28/17 21:02 Fioricet 50-325-40 PO 1 each Q4HR PRN Administration Headache Hydralazine HCl 10 mg 12/28/17 16:56 Apresoline PO TID PRN Blood Pressure - High Multivi/Iron Carb/Fe Sulf/FA/Prenat 1 each 12/28/17 09:00 12/30/17 08:49 -U Capsule PO 1 each DAILY JESUS Administration Naloxone HCl 0.2 mg 12/27/17 22:51 Narcan IV Q2M PRN Opioid Reversal Nifedipine 30 mg 12/28/17 17:00 12/30/17 08:49 Procardia Xl PO 30 mg DAILY JESUS Administration Intake and Output 12/29/17 12/30/17 12/30/17 22:59 06:59 14:59 Other: Voiding Method Toilet # Voids 2 3 12/30/17 09:14 12/30/17 09:14 <Nirali Hunt - Last Filed: 12/30/17 14:51> History of Present Illness History of present illness: Mrs. Ohara is a pleasant 42-year-old female with no past medical history. She is 7 days vaginal delivery. She states 2 days prior to delivery she saw her COST ESTIMATING MANAGER and was noted to have hypertension. This was new for her she had never suffered from preeclampsia in the past. Labor was induced and she delivered without incident. Apparently her blood pressures were controlled after delivery and she was sent home. After being home for today she started experiencing significant headache noted in the back of her neck and the base of her skull. She attributed this to her epidural and was treating at home with Motrin. The pain became intolerable and she presented to the emergency department. Blood pressure on arrival 161/98 186/98. She was started on Procardia XL 30 mg daily. Echocardiogram obtained reveals preserved left ventricular systolic function with low-normal ejection fraction 50-55%. No valvular heart disease. She denies chest pain, shortness of breath, dizziness or palpitations. Repeat blood pressure last night 118/68, this morning 132/76. At the time of my exam: CONSTITUTIONAL: Denies fever. Denies chills. EYES: Denies blurred vision. Denies vision changes. Denies eye pain. EARS, NOSE, MOUTH & THROAT: Denies headache. Denies sore throat. Denies ear pain. CARDIOVASCULAR: Denies chest pain. Denies shortness of breath. Denies orthopnea. Denies PND. Denies palpitations. RESPIRATORY: Denies cough. GASTROINTESTINAL: Denies abdominal pain. Denies diarrhea. Denies constipation. Denies nausea. Denies vomiting. MUSCULOSKELETAL: Denies myalgias. INTEGUMENTARY: Denies pruitis. Denies rash. NEUROLOGIC: Denies numbness. Denies tingling. Denies weakness. PSYCHIATRIC: Denies anxiety. Denies depression. ENDOCRINE: Denies fatigue. Denies weight change. Denies polydipsia. Denies polyurina. GENITOURINARY: Denies burning, hematuria or urgency with micturation. HEMATOLOGIC: Denies history of anemia. Denies bleeding. Blood pressure 132/76 heart rate 81 afebrile maintaining oxygen saturation on room air GENERAL: This is a 42-year-old female in no apparent distress at the time of my examination. HEENT: Head is atraumatic, normocephalic. Pupils are equal, round. Sclerae anicteric. Conjunctivae are clear. Mucous membranes of the mouth are moist. Neck is supple. There is no jugular venous distention. No carotid bruit is heard. LUNGS: Clear to auscultation no wheezes, rales or rhonchi. No chest wall tenderness is noted on palpation or with deep breathing. HEART: Regular rate and rhythm without murmurs, rubs or gallops. S1 and S2 heard. ABDOMEN: Soft, nontender. Bowel sounds are heard. No organomegaly noted. EXTREMITIES: No evidence of peripheral edema and no calf tenderness noted. VASCULAR: Radial and dorsalis pedis pulses palpated, no evidence of clubbing. NEUROLOGIC: Patient is awake, alert and oriented x3. ASSESSMENT hypertension PLAN Stable from a cardiac perspective. Continue with procardia. Keep blood pressure diary at home. Follow up appt with Dr. Walker in 3-4 weeks. Thank you kindly for this consultation. Nurse Practitioner note has been reviewed, I agree with a documented findings and plan of care. Patient was seen and examined. Physical Exam Vitals: Vital Signs Temp Pulse Resp BP BP Pulse Ox 12/30/17 08:40 97.8 F 81 12 132/76 95 12/30/17 00:56 97.8 F 78 14 118/68 12/29/17 21:22 97.9 F 87 16 140/85 96 12/29/17 16:00 81 19 12/29/17 15:20 98.3 F 81 125/83 95 Intake and Output 12/29/17 12/30/17 12/30/17 22:59 06:59 14:59 Other: Voiding Method Toilet # Voids 2 3 Results 12/30/17 09:14 12/30/17 09:14 CBC 12/30/17 Range/Units 09:14 WBC 8.4 (3.8-10.6) k/uL RBC 4.45 (3.80-5.40) m/uL Hgb 13.4 (11.4-16.0) gm/dL Hct 40.3 (34.0-46.0) % Plt Count 241 (150-450) k/uL Comprehensive Metabolic Panel 12/30/17 Range/Units 09:14 Sodium 139 (137-145) mmol/L Potassium 4.1 (3.5-5.1) mmol/L Chloride 106 (98-107) mmol/L Carbon Dioxide 23 (22-30) mmol/L BUN 8 (7-17) mg/dL Creatinine 0.60 (0.52-1.04) mg/dL Glucose 132 H (74-99) mg/dL Calcium 8.9 (8.4-10.2) mg/dL Current Medications Generic Name Dose Route Start Last Admin Trade Name Freq PRN Reason Stop Dose Admin Acetaminophen 650 mg 12/28/17 20:35 12/30/17 08:49 Tylenol Tab PO 650 mg Q6HR PRN Administration Fever and/ or Pain Acetaminophen/Butalbital/Caffeine 1 each 12/28/17 20:37 12/28/17 21:02 Fioricet 50-325-40 PO 1 each Q4HR PRN Administration Headache Multivi/Iron Carb/Fe Sulf/FA/Prenat 1 each 12/31/17 09:00 -U Capsule PO DAILY [facility]US Naloxone HCl 0.2 mg 12/27/17 22:51 Narcan IV Q2M PRN Opioid Reversal Nifedipine 30 mg 12/31/17 09:00 Procardia Xl PO DAILY JESUS Intake and Output 12/29/17 12/30/17 12/30/17 22:59 06:59 14:59 Other: Voiding Method Toilet # Voids 2 3 12/30/17 09:14 12/30/17 09:14
[2017-12-30 15:05] VITALS: BP 123/73; PULSE 74; RESP 16; TEMP 97.9
--- NOTE | 2017-12-30 15:10 | P.DS ---
Providers Date of admission: 12/27/17 22:45 Expected date of discharge: 12/30/17 Attending physician: Alexi Escalera Consults: 12/27/17 22:53 Consult Physician Routine Consulting Provider: Alex Coronel Consult Reason/Comments: Hypertension; Rule out preeclampsia Do you want consulting provider notified?: Already Contacted 12/29/17 11:11 Consult Physician Urgent Consulting Provider: Michael Fierro Consult Reason/Comments: tachycardia Do you want consulting provider notified?: Yes Primary care physician: Stated None Hospital Course: Mrs. Ohara is a 42-year-old female with no significant past medical history coming into the hospital with a chief complaint of headaches and elevated blood pressure. Patient states that this is her fifth child and she had a normal vaginal delivery 6 days back. Patient states that she started to have headache that is generalized in nature that was radiating to the skull and her neck and so she came in for further evaluation. Patient denies having any blurry vision and double vision. No chest pain or difficulty in breathing. No cough or sputum production. No abdominal pain nausea vomiting or diarrhea. She denies having any tingling or numbness in her extremities or weakness of 4 limbs. Patient is 6 days so has mild vaginal bleeding and is currently breast-feeding. Previously the patient was admitted for gestational hypertension and hadn't induced labor at 37 weeks of . Following her delivery all the patient' s labs returned to normal and blood pressures were normal. But at the time of admission here patient's blood pressure was high and so she was started on a magnesium drip and admitted to us with SURGERY TECH consult. Patient has been on IV magnesium drip for seizure prophylaxis and when necessary hydralazine for her blood pressure - has been between 130s to 160s by 80-90. On the second day of admission patient started to have tachycardia. She was tachycardic up to 120s and 130s then she was moving. So cardiology consult has been obtained. Patient had an echocardiogram done showing an ejection fraction that is within normal limits and no valvular disease identified. Patient was started on Procardia XL 30 mg which did control her blood pressure and her heart rate. She's been cleared by cardiology to be discharged home. Patient's physical exam and vitals within normal limits at the time of discharge. DISCHARGE DIAGNOSIS Accelerated hypertension - Questionable previous history of preeclampsia Patient is advised to take Procardia XL 30 mg daily and follow up with her PCP and SURGERY TECH within 1 week.. Patient is also advised to keep a log of her blood pressure readings at home. Patient Condition at Discharge: Serious Plan - Discharge Summary New Discharge Prescriptions: New NIFEdipine XL [Procardia XL] 30 mg PO DAILY #30 tab.er.24 Continue Baa-Kewv-Nzffy Acid [-U Capsule (formulary)] 1 cap PO DAILY Discharge Medication List Gqz-Oidz-Jwsdx Acid [-U Capsule (formulary)] 1 cap PO DAILY 03/04 [History] NIFEdipine XL [Procardia XL] 30 mg PO DAILY #30 tab.er.24 12/30/17 [Rx] Follow up Appointment(s)/Referral(s): Bhavik Walker MD [STAFF PHYSICIAN] - 3 Weeks None,Stated [Primary Care Provider] - 1-2 days Patient Instructions/Handouts: Nifedipine (By mouth), Heart Healthy Diet (GEN) , DASH Eating Plan (GEN), Low-Sodium Diet (GEN), Hypertension (ED), Hypertension (DC), Hypertension (GEN) Discharge Disposition: HOME SELF-CARE
[2017-12-31] MEDS ORDERED: NIFEdipine XL 30 MG TAB.ER.24 PO SCH (09:00)
[2017-12-31] MEDS ORDERED: PRENATAL VIT-IRON-FOLIC ACID 1 EACH CAP PO SCH (09:00)
== END 2017-12-30 16:35 | disposition home or self-care (01) | DRG 776 ==
LOC: EC 19:23 → 6SEL 22:45 → 6PED 12-28 16:33 → 4SSUR 12-29 11:18 → 6PED 12-29 11:18 → 4SSUR 12-30 13:42
PROVIDERS: ADMIT Internal Medicine; ATTEND Internal Medicine
DX: O16.5 Unspecified maternal hypertension, complicating the puerperium (principal); O99.345 Other mental disorders complicating the puerperium; F41.9 Anxiety disorder, unspecified; F32.9 Major depressive disorder, single episode, unspecified; E28.2 Polycystic ovarian syndrome; R74.0 Nonspecific elevation of levels of transaminase and lactic acid dehydrogenase [LDH]; R00.0 Tachycardia, unspecified
CPT/HCPCS: 36415; 80048; 80053; 81001; 83615; 83735; 84443; 84550; 85025; 85384; 85610; 85730; 93005; 93306; 96361; 96365; 96366; 96375; 99285

== ENCOUNTER 2018-04-21 21:52 | Emergency (ER) | payer OTHER ==
[2018-04-21] MEDS ORDERED: GLUCAGON 1 MG/ML VIAL IVP STA (22:17)
[2018-04-21] MEDS ORDERED: SODIUM CHLORIDE 0.9% 1,000 ML IV ONE (22:18)
--- NOTE | 2018-04-21 22:28 | ED ---
General Adult HPI - General Chief complaint: ENT Stated complaint: FB in throat Time Seen by Provider: 04/21/18 22:03 Source: patient, family Mode of arrival: ambulatory Limitations: no limitations - History of Present Illness Initial comments: This patient is a 42-year-old woman who presents with sensation of food impaction in the esophagus. She states that she had been eating some chicken around 2 in the afternoon and felt that some lodged in her esophagus. She indicates about the level of the sternal notch. The patient states that she has attempted to drink fluids but is regurgitating everything that she takes. She denies any difficulty with breathing. The patient reports having a similar episode about 3 years ago which resolved after she went to an urgent care. Onset/Timin -: hour(s) Location: neck Radiation: non-radiation Quality: dull Consistency: constant Improves with: none Worsens with: none Associated Symptoms: denies other symptoms Treatments Prior to Arrival: none - Related Data Home Medications Medication Instructions Recorded Confirmed Nea-Sxye-Hbbqi Acid 1 cap PO DAILY 12/27/17 04/21/18 [-U Capsule (formulary)] Allergies Allergy/AdvReac Type Severity Reaction Status Date / Time No Known Allergies Allergy Verified 04/21/18 22:23 Review of Systems ROS Statement: Those systems with pertinent positive or pertinent negative responses have been documented in the HPI. ROS Other: All systems not noted in ROS Statement are negative. Constitutional: Denies: fever, chills Respiratory: Denies: cough, dyspnea Cardiovascular: Denies: chest pain, palpitations Gastrointestinal: Reports: nausea, vomiting. Denies: abdominal pain Genitourinary: Denies: dysuria, hematuria Musculoskeletal: Denies: back pain Neurological: Denies: headache Past Medical History Past Medical History: No Reported History Additional Past Medical History / Comment(s): Polycystic ovarian disease. Obstetric history: Patient has had 4 previous vaginal deliveries. This is her ninth . She's had care with Dr. Ruiz at [facility] as the first trimester. Blood type is AB+, antibodies negative, rubella immune, RPR nonreactive, hepatitis B negative, HIV nonreactive, GBS negative. She did have an MFM consult for advanced maternal age. NSTs were reactive. History of Any Multi-Drug Resistant Organisms: None Reported Additional Past Surgical History / Comment(s): D&C 3 Past Anesthesia/Blood Transfusion Reactions: No Reported Reaction Past Psychological History: Anxiety, Depression Smoking Status: Never smoker Past Alcohol Use History: None Reported Past Drug Use History: None Reported - Past Family History Mother Family Medical History: No Reported History General Exam Limitations: no limitations General appearance: alert, in no apparent distress Head exam: Present: atraumatic, normocephalic ENT exam: Present: normal oropharynx, mucous membranes moist Neck exam: Present: normal inspection, full ROM. Absent: tenderness, meningismus Respiratory exam: Present: normal lung sounds bilaterally. Absent: respiratory distress, wheezes, rales, rhonchi, stridor Cardiovascular Exam: Present: regular rate, normal rhythm, normal heart sounds. Absent: systolic murmur, diastolic murmur, rubs, gallop GI/Abdominal exam: Present: soft. Absent: distended, tenderness, guarding, rebound, rigid, mass Extremities exam: Present: normal inspection, normal capillary refill. Absent: pedal edema, calf tenderness Back exam: Present: normal inspection Neurological exam: Present: alert Skin exam: Present: warm, dry, intact, normal color. Absent: rash Course Vital Signs 04/21/18 04/21/18 04/21/18 21:55 22:34 23:25 Temperature 98.5 F Pulse Rate 111 H 99 100 Respiratory 20 17 17 Rate Blood Pressure 118/88 129/90 128/94 O2 Sat by Pulse 96 96 96 Oximetry 04/22/18 04/22/18 00:06 01:01 Temperature 98.0 F Pulse Rate 90 Respiratory 18 Rate Blood Pressure 128/94 O2 Sat by Pulse 98 Oximetry Medical Decision Making - Medical Decision Making This patient is a 42-year-old woman with food impaction of the esophagus. The patient did have a trial of glucagon without success. I did discuss her case with Dr. Faye, gastroenterology on-call. He was to have the patient for endoscopy prior to today's cases probably around 5:30 in the morning. Subsequently the patient stated that she had felt like the impaction had moved and she was able to tolerate a little bit of fluids. The patient then desire to go home. She had discussed with nurse's and signed out AMA by the time I was able to speak with the patient. Disposition Clinical Impression: Food impaction of esophagus Disposition: Left Against Medical Advice Condition: Undetermined Is patient prescribed a controlled substance at d/c from ED?: No Referrals: None,Stated [Primary Care Provider] - 1-2 days
[2018-04-21 23:27] VITALS: BP 128/94
[2018-04-21] MEDS ORDERED: SODIUM CHLORIDE 0.9% 1,000 ML IV SCH (23:45)
[2018-04-21] MEDS ORDERED: NALOXONE 0.4 MG/ML 1 ML VIAL IV PRN (23:55)
[2018-04-21] MEDS ORDERED: MORPHINE SULFATE 4 MG/ML SYRINGE IV PRN (23:55)
[2018-04-22 00:09] VITALS: PULSE 90; RESP 18
[2018-04-22 01:06] VITALS: TEMP 98
== END 2018-04-22 01:07 | disposition left against medical advice (07) ==
LOC: EC 21:52 → 4MS4W 23:58 → UNDOADMOB 23:58 → EC 04-22 01:07
DX: T18.128A Food in esophagus causing other injury, initial encounter (principal); Z53.29 Procedure and treatment not carried out because of patient's decision for other reasons
CPT/HCPCS: 99283; 96374; 96361 ×2; J1610

== ENCOUNTER → 2019-04-24 | Outpatient (CLI) | payer OTHER ==
--- NOTE | 2019-04-25 18:33 | US ---
EXAMINATION TYPE: US transvaginal DATE OF EXAM: 04/24/2019 COMPARISON: NONE CLINICAL HISTORY: E28.2 PCOS. Pt feels enlarged ovary. TECHNIQUE: Transvaginal (TV). Date of LMP: 04/02/2019 EXAM MEASUREMENTS: Uterus: 10.3 x 5.8 x 8.3 cm Endometrial Stripe: 2.0 cm Right Ovary: 2.7 x 2.8 x 2.5 cm Left Ovary: 5.9 x 3.9 x 5.4 cm 1. Uterus: Anteverted wnl 2. Endometrium: thickened at 2.0 cm 3. Right Ovary: wnl 4. Left Ovary: cyst measures 4.4 x 3.9 x 3.6 cm. No internal complexity is seen. 5. Bilateral Adnexa: wnl 6. Posterior cul-de-sac: no free fluid IMPRESSION: 1. Abnormally thickened and heterogenous endometrium. Further evaluation with sonohysterogram or dire ct visualization should be considered. 2. Left ovarian simple cyst measuring 4.4 cm. This enlarges the left ovary.
== END | disposition home or self-care (01) ==
LOC: RADUSWWP 16:12
PROVIDERS: ATTEND Pediatrics
DX: E28.2 Polycystic ovarian syndrome (principal); R93.89 Abnormal findings on diagnostic imaging of other specified body structures
CPT/HCPCS: 76830

== ENCOUNTER 2019-10-07 22:17 | Emergency (ER) | payer OTHER ==
[2019-10-07 22:24] VITALS: RESP 18
[2019-10-07] MEDS ORDERED: SODIUM CHLORIDE 0.9% 1,000 ML IV STA (22:44)
--- NOTE | 2019-10-07 23:11 | XR ---
EXAMINATION TYPE: XR chest 2V DATE OF EXAM: 10/07/2019 COMPARISON: NONE HISTORY: Chest pain TECHNIQUE: 2 views FINDINGS: Heart and mediastinum are normal. Lungs are clear. Diaphragm is normal. Bony thorax appears normal. IMPRESSION: Normal chest. Normal heart.
[2019-10-07 23:17] LABS: Anisocytosis Slight; Basophils # (A) 0.1 k/uL (0-0.2); Basophils % (A) 1 %; Eosinophils # (A) 0.5 k/uL (0-0.7); Eosinophils % (A) 6 %; HCT 36.8 % (34.0-46.0); Lymphocytes # (A) 2.5 k/uL (1.0-4.8); Lymphocytes % (A) 31 %; MCH 26.5 pg (25.0-35.0); MCHC 32.6 g/dL (31.0-37.0); MCV 81.4 fL (80.0-100.0); Mean Platelet Volume 8.3; Monocytes # (A) 0.5 k/uL (0-1.0); Monocytes % (A) 6 %; Neutrophils # (A) 4.3 k/uL (1.3-7.7); Neutrophils % (A) 55 %; Platelet Count 238 k/uL (150-450); RBC 4.52 m/uL (3.80-5.40); RDW 17.2 % (11.5-15.5); WBC 7.9 k/uL (3.8-10.6)
[2019-10-07 23:28] LABS: ALT 14 U/L (4-34); AST 31 U/L (14-36); African American GFR (CKD) >90 (>60 ml/min/1.73 sqM); Alkaline Phosphatase 75 U/L (38-126); Anion Gap 8 mmol/L; Blood Urea Nitrogen 7 mg/dL (7-17); Calcium 9.1 mg/dL (8.4-10.2); Carbon Dioxide 25 mmol/L (22-30); Chloride 103 mmol/L (98-107); Glucose 94 mg/dL (74-99); Magnesium 1.8 mg/dL (1.6-2.3); Non-African American GFR(CKD) >90 (>60 ml/min/1.73 sqM); Potassium 4.1 mmol/L (3.5-5.1); Sodium 136 mmol/L (137-145); Total Bilirubin 0.4 mg/dL (0.2-1.3); Total Protein 6.7 g/dL (6.3-8.2)
[2019-10-07 23:31] LABS: D-Dimer 0.2 mg/L FEU (<0.60); INR 0.9 (<1.2); Partial Thromboplastin Time 23.7 sec (22.0-30.0); Prothrombin Time 9.8 sec (9.0-12.0)
--- NOTE | 2019-10-08 01:57 | ED ---
General Adult HPI - General Chief complaint: Chest Pain Stated complaint: Chest Pain Time Seen by Provider: 10/07/19 22:29 Source: patient, RN notes reviewed Mode of arrival: EMS Limitations: no limitations - History of Present Illness Initial comments: 44-year-old female with a past medical history of polycystic ovarian disease presents to the emergency department for a chief complaint of chest pain. Patient states she had a sharp pain on the left side of her chest about an hour and a half prior to arrival when she was putting on her child's shirt to get him ready for bed. Patient states the pain radiated to her left shoulder. Patient did not have any shortness of breath, nausea, or diaphoresis with this pain. She said lasted for about 1 minute and then subsided. Patient states she felt fine and wanted to go to bed but her wanted her to be evaluated and called EMS. She did not have any radiating pain to her back. Patient is pain- free at this time. Patient does not have a history of cardiovascular disease. No history of hypertension or hyperlipidemia aside from preeclampsia. No history of smoking. No pain worsening upon exertion. Patient has no other complaints at this time including shortness of breath, abdominal pain, nausea or vomiting, headache, or visual changes. - Related Data Home Medications Medication Instructions Recorded Confirmed Pedi Multivit No.25/Folic Acid 300 mcg PO DAILY 10/07/19 10/07/19 [Flintstones Multivit Chew Tab] Allergies Allergy/AdvReac Type Severity Reaction Status Date / Time No Known Allergies Allergy Verified 10/07/19 23:34 Review of Systems ROS Statement: Those systems with pertinent positive or pertinent negative responses have been documented in the HPI. ROS Other: All systems not noted in ROS Statement are negative. Past Medical History Past Medical History: No Reported History Additional Past Medical History / Comment(s): Polycystic ovarian disease History of Any Multi-Drug Resistant Organisms: None Reported Past Surgical History: No Surgical Hx Reported Additional Past Surgical History / Comment(s): D&C 3 Past Anesthesia/Blood Transfusion Reactions: No Reported Reaction Past Psychological History: Anxiety, Depression Smoking Status: Never smoker Past Alcohol Use History: None Reported Past Drug Use History: None Reported - Past Family History Mother Family Medical History: No Reported History General Exam Limitations: no limitations General appearance: alert, in no apparent distress Head exam: Present: atraumatic, normocephalic, normal inspection Eye exam: Present: normal appearance, PERRL, EOMI. Absent: scleral icterus, conjunctival injection, periorbital swelling ENT exam: Present: normal exam, mucous membranes moist Neck exam: Present: normal inspection, full ROM. Absent: tenderness, meningismus, lymphadenopathy Respiratory exam: Present: normal lung sounds bilaterally. Absent: respiratory distress, wheezes, rales, rhonchi, stridor Cardiovascular Exam: Present: regular rate, normal rhythm, normal heart sounds. Absent: systolic murmur, diastolic murmur, rubs, gallop, clicks GI/Abdominal exam: Present: soft, normal bowel sounds. Absent: distended, tenderness, guarding, rebound, rigid Neurological exam: Present: alert Course Vital Signs 10/07/19 10/07/19 10/08/19: 23:10 00:00 Temperature 98.0 F Pulse Rate 77 73 75 Respiratory 18 18 18 Rate Blood Pressure 129/75 121/82 129/89 O2 Sat by Pulse 100 98 98 Oximetry EKG Findings - EKG Comments: EKG Findings:: Normal sinus rhythm, ventricular rate 73, NC int 192, QTC 425, reviewed by myself and Dr. Barragan Medical Decision Making - Medical Decision Making Patient was given aspirin prior to arrival. On presentation patient is well- appearing. She is not diaphoretic. Vitals are stable. History of chest pain is atypical in nature given sharp left-sided chest pain without diaphoresis, nausea, shortness of breath. EKG is unremarkable and does not appear ischemic. CBC CMP unremarkable. Troponin is negative. D-dimer is within normal limits. Discussed admission with patient for further management and workup however patient prefers to go home at this time and follow up with her doctor. Patient does agree to do a repeat troponin before discharge home which was negative. Patient will return here for any worsening symptoms. - Lab Data Result diagrams: 10/07/19 22:48 10/07/19 22:48 Lab Results 10/07/19 10/07/19 10/07/19 Range/Units 22:48 22:48 22:48 WBC 7.9 (3.8-10.6) k/uL RBC 4.52 (3.80-5.40) m/uL Hgb 12.0 (11.4-16.0) gm/dL Hct 36.8 (34.0-46.0) % MCV 81.4 (80.0-100.0) fL MCH 26.5 (25.0-35.0) pg MCHC 32.6 (31.0-37.0) g/dL RDW 17.2 H (11.5-15.5) % Plt Count 238 (150-450) k/uL Neutrophils % 55 % Lymphocytes % 31 % Monocytes % 6 % Eosinophils % 6 % Basophils % 1 % Neutrophils # 4.3 (1.3-7.7) k/uL Lymphocytes # 2.5 (1.0-4.8) k/uL Monocytes # 0.5 (0-1.0) k/uL Eosinophils # 0.5 (0-0.7) k/uL Basophils # 0.1 (0-0.2) k/uL Anisocytosis Slight PT 9.8 (9.0-12.0) sec INR 0.9 (<1.2) APTT 23.7 (22.0-30.0) sec D-Dimer 0.20 (<0.60) mg/L FEU Sodium 136 L (137-145) mmol/L Potassium 4.1 (3.5-5.1) mmol/L Chloride 103 (98-107) mmol/L Carbon Dioxide 25 (22-30) mmol/L Anion Gap 8 mmol/L BUN 7 (7-17) mg/dL Creatinine 0.59 (0.52-1.04) mg/dL Est GFR (CKD-EPI)AfAm >90 (>60 ml/min/1.73 sqM) Est GFR (CKD-EPI)NonAf >90 (>60 ml/min/1.73 sqM) Glucose 94 (74-99) mg/dL Calcium 9.1 (8.4-10.2) mg/dL Magnesium 1.8 (1.6-2.3) mg/dL Total Bilirubin 0.4 (0.2-1.3) mg/dL AST 31 (14-36) U/L ALT 14 (4-34) U/L Alkaline Phosphatase 75 (38-126) U/L Troponin I (0.000-0.034) ng/mL NT-Pro-B Natriuret Pep pg/mL Total Protein 6.7 (6.3-8.2) g/dL Albumin 4.0 (3.5-5.0) g/dL Lipase 385 H (23-300) U/L 10/07/19 10/07/19 10/08/19 Range/Units 22:48 22:48 01:37 WBC (3.8-10.6) k/uL RBC (3.80-5.40) m/uL Hgb (11.4-16.0) gm/dL Hct (34.0-46.0) % MCV (80.0-100.0) fL MCH (25.0-35.0) pg MCHC (31.0-37.0) g/dL RDW (11.5-15.5) % Plt Count (150-450) k/uL Neutrophils % % Lymphocytes % % Monocytes % % Eosinophils % % Basophils % % Neutrophils # (1.3-7.7) k/uL Lymphocytes # (1.0-4.8) k/uL Monocytes # (0-1.0) k/uL Eosinophils # (0-0.7) k/uL Basophils # (0-0.2) k/uL Anisocytosis PT (9.0-12.0) sec INR (<1.2) APTT (22.0-30.0) sec D-Dimer (<0.60) mg/L FEU Sodium (137-145) mmol/L Potassium (3.5-5.1) mmol/L Chloride (98-107) mmol/L Carbon Dioxide (22-30) mmol/L Anion Gap mmol/L BUN (7-17) mg/dL Creatinine (0.52-1.04) mg/dL Est GFR (CKD-EPI)AfAm (>60 ml/min/1.73 sqM) Est GFR (CKD-EPI)NonAf (>60 ml/min/1.73 sqM) Glucose (74-99) mg/dL Calcium (8.4-10.2) mg/dL Magnesium (1.6-2.3) mg/dL Total Bilirubin (0.2-1.3) mg/dL AST (14-36) U/L ALT (4-34) U/L Alkaline Phosphatase (38-126) U/L Troponin I <0.012 <0.012 (0.000-0.034) ng/mL NT-Pro-B Natriuret Pep 43 pg/mL Total Protein (6.3-8.2) g/dL Albumin (3.5-5.0) g/dL Lipase (23-300) U/L Disposition Clinical Impression: Atypical chest pain Disposition: HOME SELF-CARE Condition: Good Instructions (If sedation given, give patient instructions): Chest Pain (ED) Additional Instructions: Please follow-up with your doctor by calling for an appointment tomorrow. If you have any worsening symptoms or additional episodes of chest pain return here to the emergency room. Is patient prescribed a controlled substance at d/c from ED?: No Referrals: Edward Carcamo MD [Primary Care Provider] - 1-2 days Time of Disposition: 02:09
[2019-10-08 02:43] VITALS: BP 124/68; PULSE 69; TEMP 98.2
== END 2019-10-08 02:32 | disposition home or self-care (01) ==
LOC: EC 22:17
DX: R07.89 Other chest pain (principal)
CPT/HCPCS: 36415; 71046; 80053; 83690; 83735; 83880; 84484; 85025; 85379; 85610; 85730; 93005; 99285

== ENCOUNTER → 2019-11-17 | Outpatient (CLI) | payer OTHER ==
[2019-11-17 16:55] LABS: Basophils # (A) 0.1 k/uL (0-0.2); Basophils % (A) 1 %; Eosinophils # (A) 0.5 k/uL (0-0.7); Eosinophils % (A) 5 %; HCT 38.2 % (34.0-46.0); HGB 12.3 gm/dL (11.4-16.0); Lymphocytes # (A) 2.6 k/uL (1.0-4.8); Lymphocytes % (A) 24 %; MCH 26.6 pg (25.0-35.0); MCHC 32.2 g/dL (31.0-37.0); MCV 82.7 fL (80.0-100.0); Monocytes # (A) 0.6 k/uL (0-1.0); Monocytes % (A) 6 %; Neutrophils # (A) 6.9 k/uL (1.3-7.7); Neutrophils % (A) 63 %; Platelet Count 261 k/uL (150-450); RBC 4.62 m/uL (3.80-5.40); RDW 15.9 % (11.5-15.5); WBC 10.9 k/uL (3.8-10.6)
== END | disposition home or self-care (01) ==
LOC: LABPAT 16:26
PROVIDERS: ATTEND Obstetrics & Gynecology
DX: Z01.818 Encounter for other preprocedural examination (principal)
CPT/HCPCS: 36415; 85025

== ENCOUNTER 2019-11-25 06:26 | Day surgery (SDC) | payer OTHER ==
[2019-11-19 14:51] VITALS: BMI 30.2
[~2019-11-25 06:26] MED LIST changes: +FAMOTIDINE 20 MG/2 ML VIAL IV PRN; +LACTATED RINGERS 1,000 ML IV SCH; +LIDOCAINE 1% (10MG/ML) FOR IV START INTRADERMA PRN; +ONDANSETRON 4 MG/2 ML VIAL IVP PRN; -ROPIVACAINE 5MG/ML 20ML VIAL ONE; -SODIUM CHLORIDE 0.9% 100 ML BAG ONE; -fentaNYL (PF) 50 MCG/ML 5 ML AMP ONE
--- NOTE | 2019-11-25 06:48 | P.HPOB ---
History of Present Illness H&P Date: 11/25/19 Chief Complaint: pelvic pain 44 year old presents for diagnostic laparoscopy possible aspiration of ovarian cyst possible cauterization of endometriosis and a D&C hysteroscopy. She's had ongoing left-sided pelvic pain with a cyst on that ovary up to 4 cm. She also has PCOS and has very irregular cycles. The D&C used to ensure there is no irregularity in the endometrial tissue. Review of Systems All systems: negative Constitutional: Denies chills, Denies fever Eyes: denies blurred vision, denies pain Ears, nose, mouth and throat: Denies headache, Denies sore throat Cardiovascular: Denies chest pain, Denies shortness of breath Respiratory: Denies cough Gastrointestinal: Denies abdominal pain, Denies diarrhea, Denies nausea, Denies vomiting Genitourinary: Denies dysuria, Denies hematuria Musculoskeletal: Denies myalgias Integumentary: Denies pruritus, Denies rash Neurological: Denies numbness, Denies weakness Psychiatric: Denies anxiety, Denies depression Endocrine: Denies fatigue, Denies weight change Past Medical History Past Medical History: No Reported History Additional Past Medical History / Comment(s): Polycystic ovarian disease History of Any Multi-Drug Resistant Organisms: None Reported Past Surgical History: No Surgical Hx Reported Additional Past Surgical History / Comment(s): D&C 3 Past Anesthesia/Blood Transfusion Reactions: No Reported Reaction Smoking Status: Never smoker - Past Family History Mother Family Medical History: No Reported History Medications and Allergies Home Medications Medication Instructions Recorded Confirmed Type metFORMIN HCL [Glucophage] 850 mg PO DAILY 11/19/19 11/19/19 History Allergies Allergy/AdvReac Type Severity Reaction Status Date / Time No Known Allergies Allergy Verified 11/19/19 14:45 Exam Osteopathic Statement: *. No significant issues noted on an osteopathic structural exam other than those noted in the History and Physical/Consult. Heart: Regular rate and rhythm Lungs: Clear to auscultation bilaterally Abdomen: Soft, nontender Extremities: Negative Homans sign Assessment and Plan (1) Pelvic pain Current Visit: Yes Status: Acute Code(s): R10.2 - PELVIC AND PERINEAL PAIN SNOMED Code(s): 98492861 (2) Irregular menses Current Visit: Yes Status: Acute Code(s): N92.6 - IRREGULAR MENSTRUATION, UNSPECIFIED SNOMED Code(s): 20635243 (3) PCOS (polycystic ovarian syndrome) Current Visit: Yes Status: Acute Code(s): E28.2 - POLYCYSTIC OVARIAN SYNDROME SNOMED Code(s): 856612949 Plan: 1. Diagnostic laparoscopy with da Turner, possible cauterization of endomet riosis, possible lysis of adhesions, possible aspiration of ovarian cyst. D&C hysteroscopy.
[2019-11-25] MEDS ORDERED: DEXAMETHASONE SOD PHOS (MDV) 100 MG/10 ML VIAL IVP ONE (07:20)
[2019-11-25] MEDS ORDERED: PROPOFOL 10 MG/ML 20 ML VIAL IV ONE (07:21)
[2019-11-25] MEDS ORDERED: NEOSTIGMINE 1 MG/ML 10 ML VIAL ONE (07:21)
[2019-11-25] MEDS ORDERED: SUCCINYLCHOLINE CHLORIDE 100 MG/5 ML SYR IV ONE (07:21)
[2019-11-25] MEDS ORDERED: LIDOCAINE 1% INJ 10MG/ML (20 ML MDV) ONE (07:21)
[2019-11-25] MEDS ORDERED: KETOROLAC 15 MG/ML 1 ML VIAL ONE (07:21)
[2019-11-25] MEDS ORDERED: GLYCOPYRROLATE 0.2 MG/ML 2 ML VIAL ONE (07:21)
[2019-11-25] MEDS ORDERED: fentaNYL (PF) 50 MCG/ML 2 ML AMP ONE (07:21)
[2019-11-25] MEDS ORDERED: ROCURONIUM BROMIDE 10 MG/ML 5 ML VIAL IV ONE (07:21)
[2019-11-25] MEDS ORDERED: MIDAZOLAM 2 MG/2 ML VIAL ONE (07:21)
[2019-11-25] MEDS ORDERED: BUPIVACAINE (PF) 0.25% 30 ML VIAL SQ ONE (08:13)
[2019-11-25] MEDS ORDERED: LACTATED RINGERS 1,000 ML IV ONE (08:15)
--- NOTE | 2019-11-25 08:28 | P.OP ---
Date of Procedure: 11/25/19 Preoperative Diagnosis: 1. pelvic pain 2. irregular menses 3. ovarian cyst Postoperative Diagnosis: 1. pelvic pain 2. irregular menses 3. ovarian cyst 4. adhesions Procedure(s) Performed: D&C, operative laparoscopy with aspiration of left ovarian cyst and lysis of adhesions using da Turner Anesthesia: KOLBY Surgeon: Debi Daniels Estimated Blood Loss (ml): 1 IV fluids (ml): 200 Urine output (ml): 20 Pathology: other (Endometrial curettings) Condition: stable Disposition: PACU Operative Findings: Normal uterus that sounded to 7 cm. Moderate amount of endometrial curettings. Right paratubal cyst and small right ovarian cyst with serous fluid, left ovarian cyst with serous fluid, adhesions from the pelvic sidewall on the left to the epiploica of the bowel. Description of Procedure: Patient taken the operating room where general anesthesia was obtained without difficulty. She is prepped and draped in normal sterile fashion dorsal lithotomy position, legs placed in the Ki stirrups. Weighted speculum placed in the vagina and the anterior lip the cervix was grasped with single-tooth tenaculum. The uterus sounded to 7 cm and the kroner manipulator was placed. Attention was then turned to the abdomen and gloves were changed. A 5 mm supraumbilical incision was made the scalpel and a 5 mm optical trocar was placed under direct visualization. 10 cm to the right of this and 2 cm down a 5 mm incision was made and 8 mm da Turner port was placed under direct visualization. Same measurements on the opposite side of the patient's abdomen, the 5 mm incision was made and 8 mm da Turner port was placed under direct visualization. In the left upper quadrant a 10 mm incision was made and a 10 mm optical trocar was placed under direct visualization. The 5 mm optical trocar was then replaced with the 8 mm da Turner camera port. The robot was docked on patient's right side. The camera was introduced and then the monopolar curved scissor and [place] bipolar placed under direct visualization. I broke scrub and went to the physician console. Survey of the pelvis revealed a normal uterus. No endometriosis implants were seen. There is a small right paratubal cyst that was opened using the monopolar curved scissors. Serous fluid drained. A small right ovarian cyst was also aspirated using the monopolar curved scissors, serous fluid noted drained. The left ovary did have a larger cyst on it and the epiploica of the bowel were attached to the left pelvic sidewall both superiorly and inferior of the left ovary. The adhesions were taken down using the scissors and traction. The left ovarian cyst was opened using the monopolar curved scissors. Serous drainage was aspirated. Hemostasis was assured. All instruments removed from the abdomen and the vagina. The abdominal incisions were closed with 4-0 Vicryl in a subcuticular fashion. Patient tolerated the procedure well, sponge and instrument counts correct 2 and she was taken to recovery room in stable condition condition
[2019-11-25] MEDS: HYDROmorphone 0.5 MG/0.5 ML SYRINGE IVP PRN ×3 (08:30→09:02)
[2019-11-25 08:42] VITALS: TEMP 97.1
[2019-11-25 08:47] VITALS: RESP 16
[2019-11-25 09:47] VITALS: BP 108/61; PULSE 78
== END 2019-11-25 10:24 | disposition home or self-care (01) ==
LOC: OR 06:26
PROVIDERS: ATTEND Obstetrics & Gynecology
DX: N83.202 Unspecified ovarian cyst, left side (principal); N83.201 Unspecified ovarian cyst, right side; N84.0 Polyp of corpus uteri; N83.8 Other noninflammatory disorders of ovary, fallopian tube and broad ligament; N73.6 Female pelvic peritoneal adhesions (postinfective); E28.2 Polycystic ovarian syndrome; Z98.890 Other specified postprocedural states; F41.9 Anxiety disorder, unspecified; F32.9 Major depressive disorder, single episode, unspecified; Z97.2 Presence of dental prosthetic device (complete) (partial); Z79.84 Long term (current) use of oral hypoglycemic drugs
CPT/HCPCS: 49322; S2900; 81025; 88305

== ENCOUNTER 2020-09-05 09:24 | Emergency (ER) | payer OTHER ==
--- NOTE | 2020-09-05 09:51 | ED ---
General Adult HPI - General Chief complaint: Abdominal Pain Stated complaint: Abd Pain Time Seen by Provider: 09/05/20 09:32 Source: patient Mode of arrival: ambulatory Limitations: no limitations - History of Present Illness Initial comments: Dictation was produced using [employer] dictation software. please excuse any grammatical, word or spelling errors. Chief Complaint: 44-year-old female presents with 3 weeks of abdominal pain History of Present Illness: 44-year-old female she states that she has past medical history of endometriosis. She has had 3 weeks of abdominal pain. She states that she's been having similar symptoms for the last 2 years. November of last year she had a robotic laparoscopy that showed bowel adhesions, left ovarian cyst. There was no observation of in the endometriosis left lower quadrant. Patient states that the pain as sharp and worse with palpation. She denies any nausea vomiting or diarrhea. Denies any constitutional symptoms. Since that her pain is becoming more severe the last 3 weeks. The ROS documented in this emergency department record has been reviewed and confirmed by me. Those systems with pertinent positive or negative responses have been documented in the HPI. All other systems are other negative and/or noncontributory. PHYSICAL EXAM: General Impression: Alert and oriented x3, not in acute distress HEENT: Normocephalic atraumatic, extra-ocular movements intact, pupils equal and reactive to light bilaterally, mucous membranes moist. Cardiovascular: Heart regular rate and rhythm Chest: Able to complete full sentences, no retractions, no tachypnea Abdomen: abdomen soft, tenderness to palpation of the left lower quadrant, non- distended, no organomegaly Musculoskeletal: Pulses present and equal in all extremities, no peripheral edema Motor: no focal deficits noted Neurological: CN II-XII grossly intact, no focal motor or sensory deficits noted Skin: Intact with no visualized rashes Psych: Normal affect and mood ED course: 44-year-old female presents to the emergency department for left lower quadrant abdominal pain. Patient states that this is typical pain of her endometriosis. As upon arrival are within acceptable limits. Says abdominal pain patient does not have any other GI symptoms. Laboratory evaluation obtained showing no acute processes. Transvaginal ultrasound did not visualize the left ovary however it was unremarkable. Transabdominal ultrasound was able to visualize the left ovary which was benign. Patient reevaluated at bedside at 1:30 PM found to be in stable medical condition. Given that patient has a history of adhesions there is likely a recurrence that may be causing her symptoms. Patient given referral to general surgery. - Related Data Home Medications Medication Instructions Recorded Confirmed metFORMIN HCL ER [Glucophage Xr] 500 mg PO DAILY 09/05/20 09/05/20 Allergies Allergy/AdvReac Type Severity Reaction Status Date / Time No Known Allergies Allergy Verified 09/05/20 11:24 Review of Systems ROS Statement: Those systems with pertinent positive or pertinent negative responses have been documented in the HPI. ROS Other: All systems not noted in ROS Statement are negative. Past Medical History Past Medical History: No Reported History Additional Past Medical History / Comment(s): Polycystic ovarian disease, endometreosis History of Any Multi-Drug Resistant Organisms: None Reported Past Surgical History: No Surgical Hx Reported Additional Past Surgical History / Comment(s): D&C 3, lap Past Anesthesia/Blood Transfusion Reactions: No Reported Reaction Past Psychological History: Anxiety, Depression Smoking Status: Never smoker Past Alcohol Use History: None Reported Past Drug Use History: None Reported - Past Family History Mother Family Medical History: No Reported History General Exam Limitations: no limitations Course Vital Signs 09/05/20 09/05/20 09/05/20 09:28 11:20 12:26 Temperature 98.0 F 98.1 F 98.0 F Pulse Rate 82 71 72 Respiratory 16 16 18 Rate Blood Pressure 131/85 128/83 136/81 O2 Sat by Pulse 100 99 99 Oximetry Medical Decision Making - Lab Data Result diagrams: 09/05/20 09:40 09/05/20 09:40 Lab Results 09/05/20 09/05/20 09/05/20 Range/Units 09:40 09:40 09:40 WBC 5.8 (3.8-10.6) k/uL RBC 4.32 (3.80-5.40) m/uL Hgb 10.4 L (11.4-16.0) gm/dL Hct 31.3 L (34.0-46.0) % MCV 72.5 L (80.0-100.0) fL MCH 24.1 L (25.0-35.0) pg MCHC 33.2 (31.0-37.0) g/dL RDW 14.9 (11.5-15.5) % Plt Count 310 (150-450) k/uL MPV 7.4 Neutrophils % 51 % Lymphocytes % 33 % Monocytes % 6 % Eosinophils % 8 % Basophils % 1 % Neutrophils # 3.0 (1.3-7.7) k/uL Lymphocytes # 1.9 (1.0-4.8) k/uL Monocytes # 0.3 (0-1.0) k/uL Eosinophils # 0.5 (0-0.7) k/uL Basophils # 0.1 (0-0.2) k/uL Hypochromasia Slight Microcytosis Slight Sodium (137-145) mmol/L Potassium (3.5-5.1) mmol/L Chloride (98-107) mmol/L Carbon Dioxide (22-30) mmol/L Anion Gap mmol/L BUN (7-17) mg/dL Creatinine (0.52-1.04) mg/dL Est GFR (CKD-EPI)AfAm (>60 ml/min/1.73 sqM) Est GFR (CKD-EPI)NonAf (>60 ml/min/1.73 sqM) Glucose (74-99) mg/dL Calcium (8.4-10.2) mg/dL Total Bilirubin (0.2-1.3) mg/dL AST (14-36) U/L ALT (4-34) U/L Alkaline Phosphatase (38-126) U/L Total Protein (6.3-8.2) g/dL Albumin (3.5-5.0) g/dL Lipase (23-300) U/L Urine Color Yellow Urine Appearance Cloudy H (Clear) Urine pH 7.5 (5.0-8.0) Ur Specific [place] 1.010 (1.001-1.035) Urine Protein Negative (Negative) Urine Glucose (UA) Negative (Negative) Urine Ketones Negative (Negative) Urine Blood Large H (Negative) Urine Nitrite Negative (Negative) Urine Bilirubin Negative (Negative) Urine Urobilinogen <2.0 (<2.0) mg/dL Ur Leukocyte Esterase Trace H (Negative) Urine RBC 2 (0-5) /hpf Urine WBC 4 (0-5) /hpf Ur Squamous Epith Cells 8 H (0-4) /hpf Amorphous Sediment Rare H (None) /hpf Urine Bacteria Occasional H (None) /hpf Urine Mucus Rare H (None) /hpf Urine HCG, Qual Not Detected (Not Detectd) 09/05/20 Range/Units 09:40 WBC (3.8-10.6) k/uL RBC (3.80-5.40) m/uL Hgb (11.4-16.0) gm/dL Hct (34.0-46.0) % MCV (80.0-100.0) fL MCH (25.0-35.0) pg MCHC (31.0-37.0) g/dL RDW (11.5-15.5) % Plt Count (150-450) k/uL MPV Neutrophils % % Lymphocytes % % Monocytes % % Eosinophils % % Basophils % % Neutrophils # (1.3-7.7) k/uL Lymphocytes # (1.0-4.8) k/uL Monocytes # (0-1.0) k/uL Eosinophils # (0-0.7) k/uL Basophils # (0-0.2) k/uL Hypochromasia Microcytosis Sodium 140 (137-145) mmol/L Potassium 4.3 (3.5-5.1) mmol/L Chloride 106 (98-107) mmol/L Carbon Dioxide 28 (22-30) mmol/L Anion Gap 6 mmol/L BUN 4 L (7-17) mg/dL Creatinine 0.46 L (0.52-1.04) mg/dL Est GFR (CKD-EPI)AfAm >90 (>60 ml/min/1.73 sqM) Est GFR (CKD-EPI)NonAf >90 (>60 ml/min/1.73 sqM) Glucose 88 (74-99) mg/dL Calcium 9.0 (8.4-10.2) mg/dL Total Bilirubin 0.2 (0.2-1.3) mg/dL AST 24 (14-36) U/L ALT 9 (4-34) U/L Alkaline Phosphatase 87 (38-126) U/L Total Protein 7.0 (6.3-8.2) g/dL Albumin 4.2 (3.5-5.0) g/dL Lipase 153 (23-300) U/L Urine Color Urine Appearance (Clear) Urine pH (5.0-8.0) Ur Specific [place] (1.001-1.035) Urine Protein (Negative) Urine Glucose (UA) (Negative) Urine Ketones (Negative) Urine Blood (Negative) Urine Nitrite (Negative) Urine Bilirubin (Negative) Urine Urobilinogen (<2.0) mg/dL Ur Leukocyte Esterase (Negative) Urine RBC (0-5) /hpf Urine WBC (0-5) /hpf Ur Squamous Epith Cells (0-4) /hpf Amorphous Sediment (None) /hpf Urine Bacteria (None) /hpf Urine Mucus (None) /hpf Urine HCG, Qual (Not Detectd) Disposition Clinical Impression: Pelvic pain Disposition: HOME SELF-CARE Condition: Fair Instructions (If sedation given, give patient instructions): Lysis of Abdominal Adhesions (DC) Is patient prescribed a controlled substance at d/c from ED?: No Referrals: Isaiah Estrada MD [STAFF PHYSICIAN] - 1-2 days
[2020-09-05] MEDS ORDERED: MORPHINE SULFATE 4 MG/ML SYRINGE IV STA (09:54)
[2020-09-05] MEDS ORDERED: SODIUM CHLORIDE 0.9% 1,000 ML IV STA (09:54)
[2020-09-05 09:59] LABS: Basophils # (A) 0.1 k/uL (0-0.2); Basophils % (A) 1 %; Eosinophils # (A) 0.5 k/uL (0-0.7); Eosinophils % (A) 8 %; HCT 31.3 % (34.0-46.0); HGB 10.4 gm/dL (11.4-16.0); Hypochromasia Slight; Lymphocytes # (A) 1.9 k/uL (1.0-4.8); Lymphocytes % (A) 33 %; MCH 24.1 pg (25.0-35.0); MCHC 33.2 g/dL (31.0-37.0); MCV 72.5 fL (80.0-100.0); Mean Platelet Volume 7.4; Microcytosis Slight; Monocytes # (A) 0.3 k/uL (0-1.0); Monocytes % (A) 6 %; Neutrophils % (A) 51 %; Platelet Count 310 k/uL (150-450); RBC 4.32 m/uL (3.80-5.40); RDW 14.9 % (11.5-15.5); WBC 5.8 k/uL (3.8-10.6)
--- NOTE | 2020-09-05 10:05 | XR ---
Abdomen HISTORY: Left lower quadrant pain Frontal view the abdomen on 2 images, no comparisons Lung bases are clear. There is no evident bowel obstruction or pneumoperitoneum. Retained fecal debri s is present throughout the distribution of the colon. Probable phleboliths noted in the pelvis. Bone mineralization is normal. IMPRESSION: Nonspecific findings, correlate for possible fecal stasis.
[2020-09-05 10:12] LABS: ALT 9 U/L (4-34); AST 24 U/L (14-36); African American GFR (CKD) >90 (>60 ml/min/1.73 sqM); Albumin 4.2 g/dL (3.5-5.0); Alkaline Phosphatase 87 U/L (38-126); Anion Gap 6 mmol/L; Blood Urea Nitrogen 4 mg/dL (7-17); Carbon Dioxide 28 mmol/L (22-30); Chloride 106 mmol/L (98-107); Glucose 88 mg/dL (74-99); Lipase 153 U/L (23-300); Non-African American GFR(CKD) >90 (>60 ml/min/1.73 sqM); Potassium 4.3 mmol/L (3.5-5.1); Sodium 140 mmol/L (137-145); Total Bilirubin 0.2 mg/dL (0.2-1.3)
--- NOTE | 2020-09-05 11:10 | US ---
EXAMINATION TYPE: US transvaginal DATE OF EXAM: 09/05/2020 COMPARISON: NONE CLINICAL HISTORY: suspect left ovary pathology. pain TECHNIQUE: Transvaginal (TV). EXAM MEASUREMENTS: Uterus: 9.8 x 5.9 x 5.5 cm Endometrial Stripe: .3 cm Right Ovary: 4.2 x 2.0 x 3.1 cm 1. Uterus: Anteverted Nabothian cysts seen. 2. Endometrium: wnl 3. Right Ovary: Multiple follicles seen. 4. Left Ovary: Obscured by overlying bowel gas Spectral, color and waveform doppler imaging shows good arterial and venous flow within the right o vary; there is no evidence for ovarian torsion. 5. Bilateral Adnexa: wnl 6. Posterior cul-de-sac: wnl IMPRESSION: Left ovary not visualized due to poor acoustic window. Otherwise, no definite sonographic abnormality .
[2020-09-05 12:30] VITALS: RESP 18; TEMP 98
[2020-09-05 12:40] LABS: Amorphous Sediment,Urine Rare /hpf; Appearance,Urine Cloudy (Clear); Bacteria,Urine Occasional /hpf; Bilirubin,Urine Negative (Negative); Blood,Urine Large (Negative); Color,Urine Yellow; Glucose,Urine (UA) Negative (Negative); Ketones,Urine Negative (Negative); Leukocyte Esterase,Urine Trace (Negative); Mucus,Urine Rare /hpf; Nitrite,Urine Negative (Negative); PH, Urine 7.5 (5.0-8.0); Protein,Urine Negative (Negative); RBC,Urine 2 /hpf (0-5); Squamous Epithelial Cell,Urine 8 /hpf (0-4); Urobilinogen,Urine <2.0 mg/dL (<2.0); WBC,Urine 4 /hpf (0-5)
--- NOTE | 2020-09-05 13:14 | US ---
EXAMINATION TYPE: US pelvic limited DATE OF EXAM: 09/05/2020 COMPARISON: NONE CLINICAL HISTORY: need to visualize left ovary. Need to visualize left ovary not seen transvaginally. TECHNIQUE: Transabdominal (TA). EXAM MEASUREMENTS: Left Ovary: 4.1 x 2.2 x 2.6 cm 4. Left Ovary: Dominant follicle seen1.7 x 1.9 x 2.0 cm Spectral, color and waveform doppler imaging shows good arterial and venous flow within the left ov andre; there is no evidence for ovarian torsion. IMPRESSION: Unremarkable left ovary.
[2020-09-05 13:47] VITALS: BP 125/93; PULSE 78
== END 2020-09-05 13:47 | disposition home or self-care (01) ==
LOC: EC 09:24
DX: R10.2 Pelvic and perineal pain (principal); E28.2 Polycystic ovarian syndrome; F32.9 Major depressive disorder, single episode, unspecified; F41.9 Anxiety disorder, unspecified
CPT/HCPCS: 36415; 74018; 76830; 76857; 80053; 81001; 81025; 83690; 85025; 93976; 99284

== ENCOUNTER → 2020-09-22 | Outpatient (CLI) | payer OTHER ==
[2020-09-22 13:21] LABS: African American GFR (CKD) >90 (>60 ml/min/1.73 sqM); Blood Urea Nitrogen 5 mg/dL (7-17); Non-African American GFR(CKD) >90 (>60 ml/min/1.73 sqM)
--- NOTE | 2020-09-23 08:36 | CT ---
EXAMINATION TYPE: CT abdomen pelvis w con DATE OF EXAM: 09/22/2020 COMPARISON: NONE HISTORY: 45-year-old female R10.32, Left lower quadrant abdominal pain. TECHNIQUE: Contiguous axial scanning of the abdomen and pelvis following administration of 100 ml Iso balta 300 IV contrast. Delayed images through the kidneys and coronal/sagittal reconstructions perform ed. CT DLP: 1127.6 mGycm Automated exposure control for dose reduction was used. FINDINGS: Heart normal size without pericardial effusion. Lung bases clear without pleural effusion. Diffuse low-attenuation of the hepatic parenchyma suggesting underlying fatty infiltration. Portal ve nous system is patent. No biliary ductal dilatation. Gallbladder, adrenal glands, right kidney, left kidney with extrarenal pelvis, and pancreas within no rmal limits. Spleen borderline in size at 13.3 cm measured on coronal series. No dilated small bowel, free fluid, or free air. No mesenteric or retroperitoneal lymphadenopathy. Normal appendix. Oral contrast progressed to the cecum. There is mild to moderate stool burden. No pericolonic inflamm atory change. Bladder is urine distended. Uterus anteverted. Follicular change in the ovaries measuring up to 1.3 c m on the right. Cystic structure in the left ovary measures 3.2 cm. A peripheral enhancing crenulated cystic structure also in the left ovary measures 1.8 cm, either a recently ruptured follicle or lavelle us luteum. Pelvic phleboliths. No abnormal fluid collection in the pelvis or pelvic adenopathy. Bones: No osseous destructive process. IMPRESSION: 1. BORDERLINE SIZED SPLEEN AT 13.3 CM. 2. A 3.2 CM CYST OF THE LEFT OVARY. AN ADDITIONAL 1.8 CM RECENTLY RUPTURED LEFT OVARIAN FOLLICLE VERS US CORPUS LUTEUM. THESE ARE SUSPECTED TO REPRESENT PHYSIOLOGIC CHANGES. CONSIDER 6-8 WEEK FOLLOW-UP P ELVIC ULTRASOUND TO ENSURE CLEARANCE OF THE 3.2 CM CYST. 3. SUGGESTION OF UNDERLYING HEPATIC STEATOSIS.
== END | disposition home or self-care (01) ==
LOC: RADCTMAIN 12:43
PROVIDERS: ATTEND Surgery
DX: N83.202 Unspecified ovarian cyst, left side (principal)
CPT/HCPCS: 82565; 84520; 74177; 36415; Q9967